=== PATIENT | male | born 1980 | race Caucasian/White ===

== ENCOUNTER 2020-03-21 16:49 | Emergency (ER) | payer OTHER ==
[~2020-03-21] VITALS: Ht 167.6 cm; Wt 97.5 kg
[2020-03-21] MEDS ORDERED: METFORMIN HCL500 MG PO (17:23)
[2020-03-21] MEDS ORDERED: GABA400 PO (17:23)
[2020-03-21 17:24] LABS: BASOPHILS ABSOLUTE AUTO 0.07 K/mm3 (0.00-0.23); BASOPHILS PERCENT AUTO 1 % (0-2); EOSINOPHILS ABSOLUTE AUTO 0.22 K/mm3 (0.00-0.68); EOSINOPHILS PERCENT AUTO 2 % (0-6); Hematocrit 48.6 % (37.0-53.0); Hemoglobin 16.3 g/dL (13.5-17.5); IMMATURE GRAN ABSOLUTE AUTO 0.09 K/mm3 (0.00-0.10); IMMATURE GRAN PERCENT AUTO 1 % (0-1); LYMPHOCYTES ABSOLUTE AUTO 2.92 K/mm3 (0.84-5.20); LYMPHOCYTES PERCENT AUTO 29 % (21-46); MONOCYTES ABSOLUTE AUTO 0.67 K/mm3 (0.16-1.47); MONOCYTES PERCENT AUTO 7 % (4-13); Mean Corpuscular HGB 27.8 pg (26.0-34.0); Mean Corpuscular HGB Conc 33.5 g/dL (31.5-36.5); Mean Corpuscular Volume 83 fL (80-100); Mean Platelet Volume 10.6 fL (9.1-12.4); NEUTROPHILS ABSOLUTE AUTO 5.96 K/mm3 (1.96-9.15); NEUTROPHILS PERCENT AUTO 60 % (41-73); Platelet Count 287 K/mm3 (150-400); RDW Coefficient Variation 12.6 % (11.7-14.2); RDW Standard Deviation 38.3 fL (35.1-46.3); Red Blood Cell Count 5.86 M/mm3 (4.30-5.90); White Blood Cell Count 9.93 K/mm3 (4.00-11.30)
[2020-03-21 17:47] LABS: Alanine Aminotransfer (ALT/SGP 54 U/L (12-78); Albumin, Blood 3.6 g/dL (3.4-5.0); Albumin/Globulin Ratio 1.1 (0.8-1.8); Alk Phos 254 U/L (50-136); Anion Gap 9 mmol/L (6-16); Aspartate Aminotrans (AST/SGOT 26 U/L (12-37); Bilirubin, Total 0.4 mg/dL (0.1-1.0); Blood Urea Nitrogen 20 mg/dL (8-24); Bun/Creatinine Ratio 31.9 (12.0-20.0); CO2, Blood 24 mmol/L (21-32); Chloride, Blood 103 mmol/L (98-108); Creatinine, Blood 0.63 mg/dL (0.60-1.20); Globulin, Blood 3.3 g/dL (2.2-4.0); Glomerular Filtration Rate >60 (60-); Glucose, Blood 524 mg/dL (70-99); Potassium, Blood 4.5 mmol/L (3.5-5.5); Sodium, Blood 136 mmol/L (136-145); Total Protein, Blood 6.9 g/dL (6.4-8.2)
[2020-03-21] MEDS ORDERED: OXYACE7.5T PO (18:53)
[2020-03-21] MEDS ORDERED: HYDCOR2.5C PR (18:53)
[2020-03-21] MEDS ORDERED: DOC250 PO (18:53)
== END 2020-03-21 19:28 | disposition home or self-care (01) ==
LOC: ER 16:49
PROVIDERS: Physician Assistant
DX: K64.5 Perianal venous thrombosis (principal); E11.9 Type 2 diabetes mellitus without complications; Z88.0 Allergy status to penicillin; Z79.84 Long term (current) use of oral hypoglycemic drugs; Z79.899 Other long term (current) drug therapy
CPT/HCPCS: 74177; 80053; 85025; 96374-59; 96375; 99283-25; A9270; J2405; J3010; Q9967

== ENCOUNTER → 2021-09-19 | Outpatient (CLI) | payer OTHER ==
[~2021-09-19] MED LIST: DOC250 PO; GABA400 PO; HYDCOR2.5C PR; METFORMIN HCL500 MG PO; OXYACE7.5T PO
[2021-09-19 16:02] LABS: BASOPHILS ABSOLUTE AUTO 0.09 K/mm3 (0.00-0.23); BASOPHILS PERCENT AUTO 1 % (0-2); EOSINOPHILS ABSOLUTE AUTO 0.14 K/mm3 (0.00-0.68); EOSINOPHILS PERCENT AUTO 1 % (0-6); Hematocrit 46.1 % (37.0-53.0); Hemoglobin 15.6 g/dL (13.5-17.5); IMMATURE GRAN ABSOLUTE AUTO 0.14 K/mm3 (0.00-0.10); IMMATURE GRAN PERCENT AUTO 1 % (0-1); LYMPHOCYTES ABSOLUTE AUTO 2.99 K/mm3 (0.84-5.20); LYMPHOCYTES PERCENT AUTO 26 % (21-46); MONOCYTES PERCENT AUTO 6 % (4-13); Mean Corpuscular HGB 28.1 pg (26.0-34.0); Mean Corpuscular HGB Conc 33.8 g/dL (31.5-36.5); Mean Corpuscular Volume 83 fL (80-100); Mean Platelet Volume 10.5 fL (9.1-12.4); NEUTROPHILS ABSOLUTE AUTO 7.36 K/mm3 (1.96-9.15); NEUTROPHILS PERCENT AUTO 65 % (41-73); Platelet Count 369 K/mm3 (150-400); RDW Coefficient Variation 12.9 % (11.7-14.2); RDW Standard Deviation 39.2 fL (35.1-46.3); Red Blood Cell Count 5.55 M/mm3 (4.30-5.90); White Blood Cell Count 11.42 K/mm3 (4.00-11.30)
== END | disposition home or self-care (01) ==
LOC: LAB 13:45 → LAB SHORT 13:45
PROVIDERS: Family Medicine
DX: J02.9 Acute pharyngitis, unspecified (principal); M21.941 Unspecified acquired deformity of hand, right hand
CPT/HCPCS: 36415; 84550; 85025; 87081

== ENCOUNTER 2021-10-31 14:04 | Emergency (ER) | payer OTHER ==
[~2021-10-31] VITALS: Ht 167.6 cm; Wt 74.8 kg
== END 2021-10-31 15:58 | disposition home or self-care (01) ==
LOC: ER 14:04
DX: R07.81 Pleurodynia (principal); W19.XXXA Unspecified fall, initial encounter; Z79.899 Other long term (current) drug therapy; Z79.84 Long term (current) use of oral hypoglycemic drugs; Z88.0 Allergy status to penicillin
CPT/HCPCS: 71101; A9270; J1885

== ENCOUNTER → 2024-01-02 | Outpatient (CLI) | payer OTHER ==
[~2024-01-02] MED LIST changes: +ATOR20 PO; +Amitriptyline H50 MG PO; +BASAGLAR K100 UNIT/3 SC; +CLIN150 PO; +GABA300 PO; -GABA400 PO; +HYDPAM50 PO; +INSULIN AS100 UNIT/8 SC; +LORA10ER PO; +MELATONIN10 M1 PO; +MULTI-VITAMIN1 EAC2 PO; +OMEP20ER PO; +QUETIAPINE FUM400 M6 PO; +Seroquel Xr50 MG PO; +THERA-D2000 UNIT PO; +VISBIOME 112.51 EACH PO; +VITAMIN D5000 UNIT PO
[2024-01-02 13:59] LABS: BASOPHILS ABSOLUTE AUTO 0.07 K/mm3 (0.00-0.23); BASOPHILS PERCENT AUTO 1 % (0-2); EOSINOPHILS ABSOLUTE AUTO 0.23 K/mm3 (0.00-0.68); EOSINOPHILS PERCENT AUTO 3 % (0-6); Hematocrit 48.1 % (37.0-53.0); Hemoglobin 16.4 g/dL (13.5-17.5); IMMATURE GRAN ABSOLUTE AUTO 0.06 K/mm3 (0.00-0.10); IMMATURE GRAN PERCENT AUTO 1 % (0-1); LYMPHOCYTES ABSOLUTE AUTO 2.54 K/mm3 (0.84-5.20); LYMPHOCYTES PERCENT AUTO 29 % (21-46); MONOCYTES ABSOLUTE AUTO 0.54 K/mm3 (0.16-1.47); MONOCYTES PERCENT AUTO 6 % (4-13); Mean Corpuscular HGB 27.7 pg (26.0-34.0); Mean Corpuscular HGB Conc 34.1 g/dL (31.5-36.5); Mean Corpuscular Volume 81 fL (80-100); Mean Platelet Volume 11.5 fL (9.1-12.4); NEUTROPHILS ABSOLUTE AUTO 5.21 K/mm3 (1.96-9.15); NEUTROPHILS PERCENT AUTO 60 % (41-73); Platelet Count 291 K/mm3 (150-400); RDW Coefficient Variation 13.2 % (11.7-14.2); RDW Standard Deviation 38.8 fL (35.1-46.3); Red Blood Cell Count 5.91 M/mm3 (4.30-5.90); White Blood Cell Count 8.65 K/mm3 (4.00-11.30)
[2024-01-02 14:51] LABS: Total Testosterone, Adult Male 212 ng/dL (175-781)
[2024-01-02 15:12] LABS: Vitamin D, 25-Hydroxy 16 ng/mL (32-80)
[2024-01-02 15:25] LABS: Alanine Aminotransfer (ALT/SGP 29 U/L (12-78); Albumin, Blood 3.6 g/dL (3.4-5.0); Albumin/Globulin Ratio 1.1 (0.8-1.8); Alk Phos 199 U/L (50-136); Anion Gap 10 mmol/L (3-11); Aspartate Aminotrans (AST/SGOT 17 U/L (12-37); Bilirubin, Total 0.4 mg/dL (0.1-1.0); Blood Urea Nitrogen 29 mg/dL (8-24); Bun/Creatinine Ratio 38.8 (12.0-20.0); CHOL/HDL RATIO 3.6; CO2, Blood 27 mmol/L (21-32); Calcium, Blood 9.6 mg/dL (8.5-10.1); Chloride, Blood 105 mmol/L (98-108); Cholesterol 202 mg/dL (50-200); Creatinine, Blood 0.75 mg/dL (0.60-1.20); Globulin, Blood 3.4 g/dL (2.2-4.0); Glomerular Filtration Rate 113 (60-); Glucose, Blood 424 mg/dL (70-99); HDL Cholesterol 56 mg/dL (>39); LDL/HDL RATIO 1.5; Low Density Lipoprotein Chol 85 mg/dL (0-110); Potassium, Blood 4.7 mmol/L (3.5-5.5); Sodium, Blood 137 mmol/L (136-145); Triglycerides 306 mg/dL (30-160); Very Low Density Lipoprot Chol 61 mg/dL (6-32)
[2024-01-02 15:29] LABS: Thyroid Stimulating Hormone 0.411 uIU/mL (0.360-4.800)
[2024-01-03 20:19] LABS: SERUM, C-PEPTIDE 2.9 ng/mL (0.5-3.3)
== END ==
LOC: LAB 12:10 → LAB SHORT 12:10
PROVIDERS: Physician Assistant
DX: E11.65 Type 2 diabetes mellitus with hyperglycemia (principal); E29.1 Testicular hypofunction; Z79.899 Other long term (current) drug therapy
CPT/HCPCS: 80053; 80061; 82306; 83036; 84403; 84443; 84681; 85025

== ENCOUNTER 2024-01-09 18:47 | Observation (INO) | payer OTHER ==
[~2024-01-09] VITALS: Ht 167.6 cm; Wt 75.5 kg
[~2024-01-09 18:47] MED LIST changes: -ATOR20 PO; -Amitriptyline H50 MG PO; -BASAGLAR K100 UNIT/3 SC; -CLIN150 PO; -GABA300 PO; -HYDPAM50 PO; -INSULIN AS100 UNIT/8 SC; +Insulin Human Lispro 100 Units/ML 3ML Syringe SC SCH; -LORA10ER PO; -MELATONIN10 M1 PO; -MULTI-VITAMIN1 EAC2 PO; -OMEP20ER PO; -QUETIAPINE FUM400 M6 PO; -Seroquel Xr50 MG PO; -THERA-D2000 UNIT PO; -VISBIOME 112.51 EACH PO; -VITAMIN D5000 UNIT PO
[2024-01-09 21:25] LABS: BASOPHILS ABSOLUTE AUTO 0.07 K/mm3 (0.00-0.23); BASOPHILS PERCENT AUTO 1 % (0-2); EOSINOPHILS ABSOLUTE AUTO 0.18 K/mm3 (0.00-0.68); EOSINOPHILS PERCENT AUTO 3 % (0-6); Hemoglobin 14.6 g/dL (13.5-17.5); IMMATURE GRAN ABSOLUTE AUTO 0.03 K/mm3 (0.00-0.10); IMMATURE GRAN PERCENT AUTO 0 % (0-1); LYMPHOCYTES ABSOLUTE AUTO 2.34 K/mm3 (0.84-5.20); LYMPHOCYTES PERCENT AUTO 33 % (21-46); MONOCYTES ABSOLUTE AUTO 0.49 K/mm3 (0.16-1.47); MONOCYTES PERCENT AUTO 7 % (4-13); Mean Corpuscular HGB 27.6 pg (26.0-34.0); Mean Corpuscular Volume 81 fL (80-100); Mean Platelet Volume 11.1 fL (9.1-12.4); NEUTROPHILS PERCENT AUTO 57 % (41-73); Platelet Count 265 K/mm3 (150-400); RDW Coefficient Variation 13.1 % (11.7-14.2); RDW Standard Deviation 38.5 fL (35.1-46.3); Red Blood Cell Count 5.29 M/mm3 (4.30-5.90); White Blood Cell Count 7.21 K/mm3 (4.00-11.30)
[2024-01-09 21:37] LABS: Albumin, Blood 3.3 g/dL (3.4-5.0); Bilirubin, Total 0.3 mg/dL (0.1-1.0); Bun/Creatinine Ratio 33.2 (12.0-20.0); C-REACTIVE PROTEIN, EXT RANGE 0.85 mg/dL (0.000-0.300); Calcium, Blood 9.4 mg/dL (8.5-10.1); Creatinine, Blood 0.57 mg/dL (0.60-1.20); Globulin, Blood 3.3 g/dL (2.2-4.0); Potassium, Blood 4.1 mmol/L (3.5-5.5); Total Protein, Blood 6.6 g/dL (6.4-8.2)
[2024-01-09] MEDS ORDERED: Vancomycin HCL 1,250 MG in NS 250 ML IV ONE (22:25)
[2024-01-09] MEDS ORDERED: Clindamycin 600mg in D5W 50 ML IV ONE (22:25)
[2024-01-09] MEDS ORDERED: Insulin NPH 100 Unit / ML 10ML Vial SC ONE (22:40)
[2024-01-09] MEDS ORDERED: FLU VACC TS2024-25(6MOS UP)/PF 45 MCG/0.5 ML SYRINGE IM SCH (23:30)
[2024-01-10] MEDS ORDERED: Acetaminophen 325 MG Supp PR PRN (02:10)
[2024-01-10 02:16] VITALS: BP 119/73
[2024-01-10 04:58] LABS: BASOPHILS ABSOLUTE AUTO 0.08 K/mm3 (0.00-0.23); BASOPHILS PERCENT AUTO 1 % (0-2); EOSINOPHILS ABSOLUTE AUTO 0.29 K/mm3 (0.00-0.68); EOSINOPHILS PERCENT AUTO 3 % (0-6); Hematocrit 43.1 % (37.0-53.0); IMMATURE GRAN ABSOLUTE AUTO 0.03 K/mm3 (0.00-0.10); IMMATURE GRAN PERCENT AUTO 0 % (0-1); LYMPHOCYTES ABSOLUTE AUTO 2.77 K/mm3 (0.84-5.20); LYMPHOCYTES PERCENT AUTO 33 % (21-46); MONOCYTES ABSOLUTE AUTO 0.59 K/mm3 (0.16-1.47); MONOCYTES PERCENT AUTO 7 % (4-13); Mean Corpuscular HGB Conc 34.8 g/dL (31.5-36.5); Mean Corpuscular Volume 81 fL (80-100); Mean Platelet Volume 10.6 fL (9.1-12.4); NEUTROPHILS ABSOLUTE AUTO 4.68 K/mm3 (1.96-9.15); NEUTROPHILS PERCENT AUTO 56 % (41-73); Platelet Count 251 K/mm3 (150-400); RDW Coefficient Variation 13.2 % (11.7-14.2); RDW Standard Deviation 38.1 fL (35.1-46.3); Red Blood Cell Count 5.35 M/mm3 (4.30-5.90); White Blood Cell Count 8.44 K/mm3 (4.00-11.30)
[2024-01-10 05:18] LABS: Bun/Creatinine Ratio 28.8 (12.0-20.0); Creatinine, Blood 0.59 mg/dL (0.60-1.20); Potassium, Blood 3.8 mmol/L (3.5-5.5)
[2024-01-10] MEDS ORDERED: Insulin Glargine-Yfgn 100 Unit/mL 3 ML SYR SC SCH ×3 (06:36→21:00)
[2024-01-10] MEDS ORDERED: Insulin Human Lispro 100 Units/ML 3ML Syringe SC SCH ×5 (07:30→11:30)
[2024-01-10 07:43] VITALS: BP 130/90
[2024-01-10] MEDS ORDERED: Clindamycin 600mg in D5W 50 ML IV SCH (08:00)
[2024-01-10] MEDS ORDERED: Vancomycin HCL 1,250 MG in NS 250 ML IV SCH (08:00)
[2024-01-10] MEDS ORDERED: NS 250 ML IV PRN (08:05)
[2024-01-10] MEDS ORDERED: Lactobacil 2-S.Thermo-Bifido 1 1 Cap PO SCH (09:00)
[2024-01-10] MEDS ORDERED: Enoxaparin 40 MG/0.4 ML SYR SC SCH (09:00)
[2024-01-10] MEDS ORDERED: Acetaminophen 325 MG TABLET PO PRN (09:10)
[2024-01-10] MEDS ORDERED: Gabapentin 300 MG Cap PO SCH (10:00)
[2024-01-10] MEDS ORDERED: Amitriptyline H50 MG PO (11:36)
[2024-01-10] MEDS ORDERED: VITAMIN D5000 UNIT PO (11:37)
[2024-01-10] MEDS ORDERED: ATOR20 PO (11:37)
[2024-01-10] MEDS ORDERED: DOC250 PO (11:38)
[2024-01-10] MEDS ORDERED: INSULIN AS100 UNIT/8 SC (11:40)
[2024-01-10] MEDS ORDERED: HYDPAM50 PO (11:40)
[2024-01-10] MEDS ORDERED: BASAGLAR K100 UNIT/3 SC (11:41)
[2024-01-10] MEDS ORDERED: LORA10ER PO (11:42)
[2024-01-10] MEDS ORDERED: MELATONIN10 M1 PO (11:42)
[2024-01-10] MEDS ORDERED: QUETIAPINE FUM400 M6 PO (11:45)
[2024-01-10] MEDS ORDERED: OMEP20ER PO (11:45)
[2024-01-10] MEDS ORDERED: MULTI-VITAMIN1 EAC2 PO (11:45)
[2024-01-10] MEDS ORDERED: Seroquel Xr50 MG PO (11:46)
[2024-01-10] MEDS ORDERED: THERA-D2000 UNIT PO (11:53)
--- NOTE | 2024-01-10 12:24 | NUR ---
1224 THIS RN NOTIFIED ABOUT PT CBG OF 376.
[2024-01-10] MEDS ORDERED: GABA300 PO (13:59)
[2024-01-10] MEDS ORDERED: VISBIOME 112.51 EACH PO (14:27)
[2024-01-10] MEDS ORDERED: CLIN150 PO (14:29)
== END 2024-01-10 15:38 | disposition home or self-care (01) ==
LOC: ER 18:47 → ERHOLD 18:48 → MEDS 18:48 → ENPENDDIS 01-10 14:52 → MEDS 01-10 15:38
PROVIDERS: Family Medicine; Student in an Organized Health Care Education/Training Program; ADMIT Internal Medicine
DX: L03.032 Cellulitis of left toe (principal); E11.40 Type 2 diabetes mellitus with diabetic neuropathy, unspecified; I10 Essential (primary) hypertension; G47.33 Obstructive sleep apnea (adult) (pediatric); K21.9 Gastro-esophageal reflux disease without esophagitis; F43.10 Post-traumatic stress disorder, unspecified; F43.12 Post-traumatic stress disorder, chronic; E78.00 Pure hypercholesterolemia, unspecified; Z79.4 Long term (current) use of insulin; Z79.899 Other long term (current) drug therapy; Z79.84 Long term (current) use of oral hypoglycemic drugs; Z88.0 Allergy status to penicillin
CPT/HCPCS: 36415; 80048; 80053; 82947; 83605; 84145; 85025; 85651; 86140; 96365; 96366; 96367; 96372; 99284-25; A9270; G0378; J1650; J1815; J3370; J7050

== ENCOUNTER 2024-01-12 21:30 | Emergency (ER) | payer OTHER ==
[~2024-01-12] VITALS: Ht 167.6 cm; Wt 77.1 kg
[~2024-01-12 21:30] MED LIST changes: +ATOR20 PO; +Amitriptyline H50 MG PO; +BASAGLAR K100 UNIT/3 SC; +CLIN150 PO; +GABA300 PO; +HYDPAM50 PO; +INSULIN AS100 UNIT/8 SC; -Insulin Human Lispro 100 Units/ML 3ML Syringe SC SCH; +LORA10ER PO; +MELATONIN10 M1 PO; +MULTI-VITAMIN1 EAC2 PO; +OMEP20ER PO; +QUETIAPINE FUM400 M6 PO; +Seroquel Xr50 MG PO; +THERA-D2000 UNIT PO; +VISBIOME 112.51 EACH PO; +VITAMIN D5000 UNIT PO
[2024-01-12 22:04] VITALS: BP 132/92
[2024-01-12 23:35] LABS: BASOPHILS ABSOLUTE AUTO 0.07 K/mm3 (0.00-0.23); BASOPHILS PERCENT AUTO 1 % (0-2); EOSINOPHILS ABSOLUTE AUTO 0.21 K/mm3 (0.00-0.68); EOSINOPHILS PERCENT AUTO 3 % (0-6); Hemoglobin 14.3 g/dL (13.5-17.5); IMMATURE GRAN ABSOLUTE AUTO 0.04 K/mm3 (0.00-0.10); IMMATURE GRAN PERCENT AUTO 1 % (0-1); LYMPHOCYTES PERCENT AUTO 34 % (21-46); MONOCYTES ABSOLUTE AUTO 0.62 K/mm3 (0.16-1.47); MONOCYTES PERCENT AUTO 7 % (4-13); Mean Corpuscular HGB 27.5 pg (26.0-34.0); Mean Corpuscular HGB Conc 32.5 g/dL (31.5-36.5); Mean Corpuscular Volume 85 fL (80-100); Mean Platelet Volume 10.1 fL (9.1-12.4); NEUTROPHILS ABSOLUTE AUTO 4.59 K/mm3 (1.96-9.15); NEUTROPHILS PERCENT AUTO 54 % (41-73); Platelet Count 279 K/mm3 (150-400); RDW Coefficient Variation 13.3 % (11.7-14.2); White Blood Cell Count 8.43 K/mm3 (4.00-11.30)
[2024-01-13 00:02] LABS: Albumin, Blood 3.2 g/dL (3.4-5.0); Bilirubin, Total 0.3 mg/dL (0.1-1.0); Bun/Creatinine Ratio 28.8 (12.0-20.0); Calcium, Blood 9.1 mg/dL (8.5-10.1); Creatinine, Blood 0.59 mg/dL (0.60-1.20); Globulin, Blood 3.2 g/dL (2.2-4.0); Potassium, Blood 3.5 mmol/L (3.5-5.5); Total Protein, Blood 6.4 g/dL (6.4-8.2)
[2024-01-13] MEDS ORDERED: CLIN300 PO (03:23)
== END 2024-01-13 03:59 | disposition home or self-care (01) ==
LOC: ER 21:30
PROVIDERS: Emergency Medicine
DX: S91.202A Unspecified open wound of left great toe with damage to nail, initial encounter (principal); X58.XXXA Exposure to other specified factors, initial encounter; J45.909 Unspecified asthma, uncomplicated; I10 Essential (primary) hypertension; E13.8 Other specified diabetes mellitus with unspecified complications; K21.9 Gastro-esophageal reflux disease without esophagitis; E78.00 Pure hypercholesterolemia, unspecified; Z88.0 Allergy status to penicillin; Z79.4 Long term (current) use of insulin; Z79.84 Long term (current) use of oral hypoglycemic drugs; Z79.899 Other long term (current) drug therapy
CPT/HCPCS: 11730; 80053; 85025; 99283-25

== ENCOUNTER → 2024-05-31 | Outpatient (CLI) | payer OTHER ==
[~2024-05-31] MED LIST changes: +CLIN300 PO
== END | disposition home or self-care (01) ==
LOC: LAB SHORT 10:00 → LAB 10:00
DX: L97.519 Non-pressure chronic ulcer of other part of right foot with unspecified severity (principal)
CPT/HCPCS: 87070; 87075; 87077; 87147; 87186; 87205

== ENCOUNTER 2024-06-02 16:19 | Inpatient (IN) | payer OTHER ==
[~2024-06-02] VITALS: Ht 167.6 cm; Wt 81.7 kg
[2024-06-02 17:34] LABS: BASOPHILS ABSOLUTE AUTO 0.03 K/mm3 (0.00-0.23); BASOPHILS PERCENT AUTO 0 % (0-2); EOSINOPHILS ABSOLUTE AUTO 0.22 K/mm3 (0.00-0.68); EOSINOPHILS PERCENT AUTO 2 % (0-6); Hematocrit 36.1 % (37.0-53.0); Hemoglobin 12.2 g/dL (13.5-17.5); IMMATURE GRAN ABSOLUTE AUTO 0.04 K/mm3 (0.00-0.10); IMMATURE GRAN PERCENT AUTO 0 % (0-1); LYMPHOCYTES ABSOLUTE AUTO 1.31 K/mm3 (0.84-5.20); LYMPHOCYTES PERCENT AUTO 11 % (21-46); MONOCYTES ABSOLUTE AUTO 0.76 K/mm3 (0.16-1.47); MONOCYTES PERCENT AUTO 6 % (4-13); Mean Corpuscular HGB 27.1 pg (26.0-34.0); Mean Corpuscular HGB Conc 33.8 g/dL (31.5-36.5); Mean Corpuscular Volume 80 fL (80-100); Mean Platelet Volume 10.5 fL (9.1-12.4); NEUTROPHILS ABSOLUTE AUTO 9.44 K/mm3 (1.96-9.15); NEUTROPHILS PERCENT AUTO 80 % (41-73); Platelet Count 247 K/mm3 (150-400); RDW Coefficient Variation 13.6 % (11.7-14.2); RDW Standard Deviation 39.6 fL (35.1-46.3); Red Blood Cell Count 4.51 M/mm3 (4.30-5.90)
[2024-06-02 18:04] LABS: Albumin, Blood 2.6 g/dL (3.4-5.0); Albumin/Globulin Ratio 0.7 (0.8-1.8); Bilirubin, Total 0.3 mg/dL (0.1-1.0); Bun/Creatinine Ratio 15.7 (12.0-20.0); Calcium, Blood 8.4 mg/dL (8.5-10.1); Creatinine, Blood 0.89 mg/dL (0.60-1.20); Globulin, Blood 3.7 g/dL (2.2-4.0); Potassium, Blood 3.4 mmol/L (3.5-5.5); Total Protein, Blood 6.3 g/dL (6.4-8.2)
[2024-06-02] MEDS ORDERED: Ciprofloxacin 400MG/D5 200ML 200 ML IV ONE (20:55)
[2024-06-02] MEDS ORDERED: NS 1,000 ML IV SCH ×2 (21:00→22:00)
[2024-06-02] MEDS ORDERED: Ketorolac Tromethamine 30mg Vial IV ONE (21:00)
[2024-06-02] MEDS ORDERED: FLU VACC TS2024-25(6MOS UP)/PF 45 MCG/0.5 ML SYRINGE IM ONE (21:15)
[2024-06-02] MEDS ORDERED: Vancomycin HCL 1,500 MG in NS 250 ML IV ONE (21:25)
[2024-06-02] MEDS ORDERED: CefTRIAXone Sodium 1,000 MG in NS 100 ML IV SCH (21:30)
[2024-06-02] MEDS ORDERED: Lactobacil 2-S.Thermo-Bifido 1 1 Cap PO SCH (22:00)
[2024-06-02] MEDS ORDERED: Insulin Human Lispro 100 Units/ML 3ML Syringe SC SCH (22:00)
[2024-06-02] MEDS ORDERED: Insulin Glargine-Yfgn 100 Unit/mL 3 ML SYR SC SCH (22:00)
[2024-06-02 23:14] VITALS: BP 144/94
[2024-06-02] MEDS ORDERED: HydrOXYzine Pamoate 50 MG Cap PO PRN (23:20)
[2024-06-02] MEDS ORDERED: QUEtiapine Fumarate 50 MG TAB PO PRN (23:25)
[2024-06-03] MEDS ORDERED: Potassium Chloride 20 MEQ/15 ML UDC PO ONE (01:05)
[2024-06-03 05:17] VITALS: BP 140/99
[2024-06-03 05:59] LABS: Hematocrit 36.9 % (37.0-53.0); Hemoglobin 12.3 g/dL (13.5-17.5); Mean Corpuscular HGB 26.9 pg (26.0-34.0); Mean Corpuscular HGB Conc 33.3 g/dL (31.5-36.5); Mean Corpuscular Volume 81 fL (80-100); Mean Platelet Volume 10.6 fL (9.1-12.4); Platelet Count 232 K/mm3 (150-400); RDW Coefficient Variation 13.6 % (11.7-14.2); RDW Standard Deviation 39.7 fL (35.1-46.3); Red Blood Cell Count 4.58 M/mm3 (4.30-5.90); White Blood Cell Count 9.23 K/mm3 (4.00-11.30)
--- NOTE | 2024-06-03 06:31 | NUR ---
SHIFT SUMMARY 44 YR M ADMITTED THIS SHIFT FROM THE ER. FULL CODE. PY HAS A RIGHT FOOT WOUND ON THE BOTTOM OF HIS FOOT. FOOT IS RED AND SWOLLEN. RED ARE IS OUTLINED W/ MARKER. WOUND IS OOZING SO DRESSING OF NON STICK PAD AND GAUZE WRAP WAS APPLIED. NO OTHER ACUTE ISSUES AT THIS TIME. PT HAS SLEPT FOR MOST OF HIS TIME ON THIS UNIT. HE IS A&O X 4, PLEASANT AND COOPERTIVE WITH CARE. ABLE TO MAKE HIS NEEDS KNOWN. BED IN LOW POSITION AND CALL LIGHT IN REACH.
[2024-06-03 06:34] LABS: Bun/Creatinine Ratio 22.9 (12.0-20.0); Calcium, Blood 7.9 mg/dL (8.5-10.1); Creatinine, Blood 0.65 mg/dL (0.60-1.20); Potassium, Blood 3.8 mmol/L (3.5-5.5)
[2024-06-03] MEDS ORDERED: Omeprazole 20 MG CapCR PO SCH (07:30)
[2024-06-03 07:55] VITALS: BP 148/99
[2024-06-03] MEDS ORDERED: Vancomycin HCL 1,000 MG in NS 250 ML IV SCH (08:00)
[2024-06-03] MEDS ORDERED: Cholecalciferol 1000 Unit Tablet (=25MCG) PO SCH (09:00)
[2024-06-03] MEDS ORDERED: Multivitamins 1 Tab PO SCH (09:00)
[2024-06-03] MEDS ORDERED: Loratadine 10 MG Tab PO SCH (09:00)
[2024-06-03] MEDS ORDERED: Gabapentin 300 MG Cap PO SCH (09:00)
[2024-06-03] MEDS ORDERED: Enoxaparin 40 MG/0.4 ML SYR SC SCH (09:00)
[2024-06-03] MEDS ORDERED: Docusate Sodium 250 MG Cap PO SCH (09:00)
[2024-06-03 11:33] VITALS: BP 155/94
[2024-06-03] MEDS ORDERED: Piperacillin/Tazobactam Sod 4.5 GM in NS 100 ML IV SCH (12:00)
[2024-06-03 16:06] VITALS: BP 144/92
--- NOTE | 2024-06-03 19:13 | NUR ---
ASSUMED CARE OF PT A/O X4 PLEASENT AND VERY DROWSEY TODAY, PT [id number] ATE OR SLEPT, HAD NO C/O PAIN AND NO DISTRESS. ANTIBIOTIC INFUSING FOR RIGHT FT ABCESS. PODIATRY IN THIS AM AND AGREED TO JUST WAIT AND SEE. FOOT WAS CLEANSSED WITH SPRAY AND DRESSED WITH 4X4 AND KERLIX. FT THE ELEVATED IN BED.
[2024-06-03 20:49] VITALS: BP 130/82
[2024-06-03] MEDS ORDERED: Atorvastatin 10 MG Tab PO SCH (21:00)
[2024-06-03] MEDS ORDERED: Melatonin 5 MG Tablet PO SCH (21:00)
[2024-06-03] MEDS ORDERED: Amitriptyline HCl 50 MG Tab PO SCH (21:00)
[2024-06-03 23:16] LABS: Vancomycin, Trough 13.3 ug/mL (5.0-10.0)
[2024-06-04] VITALS (7 sets, daily range): BP systolic 141–164; BP diastolic 86–108
[2024-06-04] MEDS ORDERED: NS 250 ML IV PRN (00:25)
--- NOTE | 2024-06-04 00:44 | NUR ---
PT RESTING QUIETLY AT START OF SHIFT. WOKE EASILY FOR CARE. UP INDEPENDENTLY IN RM AND TO BTHRM. PT ADMITTED FOR SEPSIS R/T DIABETIC FOOT ULCER. PT IS NONCOMPLIANT DIABETIC, BUT PLEASANT. DRSG TO R FOOT; C/D/I. PT RECEIVING IV ABX PER EMAR. PT REPORTS NEUROPATHY IN FEET AND UNABLE TO FEEL INJURY OR WOUNDS. DENIES FURTHER NEEDS AT THIS TIME. CALL LT IN REACH.
--- NOTE | 2024-06-04 04:15 | NUR ---
THIS NURSE RESUMED CARE FOR PT WITH NO ACUTE CHANGES NOTED. PT CONT WITH IV ABT. PT NOTED TO SLEEP THROUGHOUT THIS SHIFT.
[2024-06-04 05:31] LABS: BASOPHILS ABSOLUTE AUTO 0.05 K/mm3 (0.00-0.23); BASOPHILS PERCENT AUTO 1 % (0-2); EOSINOPHILS ABSOLUTE AUTO 0.48 K/mm3 (0.00-0.68); EOSINOPHILS PERCENT AUTO 5 % (0-6); Hematocrit 38.4 % (37.0-53.0); Hemoglobin 12.8 g/dL (13.5-17.5); IMMATURE GRAN ABSOLUTE AUTO 0.08 K/mm3 (0.00-0.10); IMMATURE GRAN PERCENT AUTO 1 % (0-1); LYMPHOCYTES PERCENT AUTO 20 % (21-46); MONOCYTES ABSOLUTE AUTO 0.75 K/mm3 (0.16-1.47); MONOCYTES PERCENT AUTO 8 % (4-13); Mean Corpuscular HGB 26.9 pg (26.0-34.0); Mean Corpuscular HGB Conc 33.3 g/dL (31.5-36.5); Mean Corpuscular Volume 81 fL (80-100); Mean Platelet Volume 10.2 fL (9.1-12.4); NEUTROPHILS PERCENT AUTO 65 % (41-73); Platelet Count 256 K/mm3 (150-400); RDW Coefficient Variation 13.3 % (11.7-14.2); RDW Standard Deviation 39.3 fL (35.1-46.3); Red Blood Cell Count 4.75 M/mm3 (4.30-5.90); White Blood Cell Count 8.96 K/mm3 (4.00-11.30)
[2024-06-04 05:59] LABS: Bun/Creatinine Ratio 14.4 (12.0-20.0); Calcium, Blood 8.3 mg/dL (8.5-10.1); Creatinine, Blood 0.63 mg/dL (0.60-1.20); Potassium, Blood 3.8 mmol/L (3.5-5.5)
--- NOTE | 2024-06-04 08:23 | NUR ---
ASSUMPTION OF CARE: ASSUMED CARE OF PATIENT. ASLEEP DURING SHIFT CHANGE REPORT, LYING SUPINE IN BED. BREATHING EVEN AND UNLABORED. ROOM AIR. BED IN LOWEST POSITION. CALL LIGHT WITHIN REACH. NO ACUTE NEEDS.
--- NOTE | 2024-06-04 13:58 | NUR ---
DR ZIEGLER TO BEDSIDE: ORDERS FOR POST-OP SHOE AND WOUND CARE ORDERS. PROVIDED BEDSIDE WOUND CHANGE AND DEBRIDEMENT.
--- NOTE | 2024-06-04 18:18 | NUR ---
END OF SHIFT SUMMARY: A&Ox4. PLEASANT AND COOPERATIVE WITH MOST CARE, THOUGH IS NONCOMPLIANT WITH NWB STATUS. ABLE TO ADVOCATE NEEDS EFFECTIVELY. WALKS INDEPENDENTLY, THOUGH HE HAS BEEN REMINDED TO UTILIZE CALL LIGHT FOR SBA FOR LINE MANAGEMENT AND RLE WEAKNESS R/T WOUND. CONTINENT OF BOWEL AND BLADDER. MEDS WHOLE c FLUIDS. NO C / O PAIN OR DISCOMFORT. DR ZIEGLER TO BEDSIDE AND PROVIDED WOUND CARE. ORDER FOR POST-OP SHOE HE IS WILLING TO WEAR. AT BEDSIDE TODAY c TAKEOUT FOR MEALS. PATIENT CONTINUES TO CONSUME FOODS AND SNACKS HEAVY IN STARCHES AND CARBOHYDRATES DESPITE DIABETES STATUS. CONTINUES c 5u HUMALOG AC. BED IN LOWEST POSITION, CALL LIGHT WITHIN REACH, ALL NEEDS MET. REPORT TO ONCOMING NURSE.
[2024-06-04] MEDS ORDERED: Acetaminophen 500 MG Tab PO PRN (21:05)
[2024-06-05 00:07] VITALS: BP 130/82
[2024-06-05 03:52] VITALS: BP 157/101
--- NOTE | 2024-06-05 05:09 | NUR ---
SHIFT SUMMARY; PATIENT SLEPT IN VERY LONG INTERVALS. DID STAND AT BEDSIDE AND VOID 1300ML AT ONCE. FEVER OF 101.7, MEDICATED WITH TYLENOL.TELE SR 92 BORDERLINE HTN NOTED.
[2024-06-05 07:20] VITALS: BP 140/96
--- NOTE | 2024-06-05 07:35 | NUR ---
ASSUMPTION OF CARE: ASSUMED CARE OF PATIENT. ASLEEP DURING SHIFT CHANGE REPORT. LYING IN BED. BREATHING EVEN AND UNLABORED c PRESENCE OF SNORE. ROOM AIR. TELE NSR. BED IN LOWEST POSITION. CALL LIGHT WITHIN REACH. NO ACUTE NEEDS.
[2024-06-05] MEDS ORDERED: ACET500 PO ×2 (10:41)
[2024-06-05] MEDS ORDERED: AMOCLA875 PO ×2 (10:42)
[2024-06-05 11:16] VITALS: BP 143/93
--- NOTE | 2024-06-05 20:27 | NUR ---
DISCHARGE SUMMARY: A&Ox4. COOPERATIVE WITH MOST CARE, THOUGH IS NONCOMPLIANT WITH NWB STATUS. ABLE TO ADVOCATE NEEDS EFFECTIVELY. AMBULATES INDEPENDENTLY; REMINDED TO UTILIZE CALL LIGHT FOR SBA FOR LINE MANAGEMENT AND RLE NWB STATUS. CONTINENT OF BOWEL AND BLADDER. MEDS WHOLE c FLUIDS. NO C/O PAIN OR DISCOMFORT. MEDS FAXED TO [facility]. IVs REMOVED BY THIS RN AFTER COMPLETING VANCO. PT LEFT FLOOR ACCOMPANIED BY WITH DISCHARGE PACKET AND ALL BELONGINGS. ORDERS FOR WOUND CARE CLINIC AND F/U c [facility].
== END 2024-06-05 12:00 | disposition home or self-care (01) | DRG 872 ==
LOC: ER 16:19 → MEDS 21:10 → ERHOLD 21:10 → MEDS 23:03 → ENPENDDIS 06-05 11:08 → MEDS 06-05 12:00
PROVIDERS: Internal Medicine; Physician Assistant; ADMIT Internal Medicine
DX: A41.9 Sepsis, unspecified organism (principal); L03.115 Cellulitis of right lower limb; L97.419 Non-pressure chronic ulcer of right heel and midfoot with unspecified severity; E11.621 Type 2 diabetes mellitus with foot ulcer; R65.20 Severe sepsis without septic shock; E11.628 Type 2 diabetes mellitus with other skin complications; E87.6 Hypokalemia; M54.50 Low back pain, unspecified; G89.29 Other chronic pain; F43.10 Post-traumatic stress disorder, unspecified; E11.42 Type 2 diabetes mellitus with diabetic polyneuropathy; F32.A Depression, unspecified; F41.9 Anxiety disorder, unspecified; K21.9 Gastro-esophageal reflux disease without esophagitis; E78.00 Pure hypercholesterolemia, unspecified; G47.30 Sleep apnea, unspecified; Z88.0 Allergy status to penicillin; Z79.84 Long term (current) use of oral hypoglycemic drugs; Z79.4 Long term (current) use of insulin; Z79.899 Other long term (current) drug therapy; Z79.2 Long term (current) use of antibiotics; E11.65 Type 2 diabetes mellitus with hyperglycemia
CPT/HCPCS: 36415; 73630; 73701; 80048; 80053; 80202; 82947; 83605; 85025; 85027; 87040; 87070; 87075; 87077; 87147; 87186; 87205; 93005; 93010; 96374-59; 99285-25; A9270; J0696; J0744; J1650; J1815; J1885; J2543; J3370; J7030; J7050; Q9967

== ENCOUNTER → 2024-06-06 | Outpatient (CLI) | payer OTHER ==
[~2024-06-06] MED LIST changes: +ACET500 PO; +AMOCLA875 PO
== END ==
LOC: LAB SHORT 10:33 → LAB 10:33
DX: E11.621 Type 2 diabetes mellitus with foot ulcer (principal)
CPT/HCPCS: 87070; 87075; 87077; 87147; 87186; 87205

== ENCOUNTER 2024-06-24 15:54 | Inpatient (IN) | payer OTHER ==
[~2024-06-24] VITALS: Ht 167.6 cm; Wt 78.0 kg
[2024-06-24] VITALS (11 sets, daily range): BP systolic 101–176; BP diastolic 75–127
[2024-06-24 16:24] LABS: BASOPHILS ABSOLUTE AUTO 0.08 K/mm3 (0.00-0.23); BASOPHILS PERCENT AUTO 1 % (0-2); EOSINOPHILS ABSOLUTE AUTO 0.24 K/mm3 (0.00-0.68); EOSINOPHILS PERCENT AUTO 3 % (0-6); Hematocrit 43.9 % (37.0-53.0); Hemoglobin 15.2 g/dL (13.5-17.5); IMMATURE GRAN ABSOLUTE AUTO 0.04 K/mm3 (0.00-0.10); IMMATURE GRAN PERCENT AUTO 1 % (0-1); LYMPHOCYTES ABSOLUTE AUTO 2.52 K/mm3 (0.84-5.20); LYMPHOCYTES PERCENT AUTO 29 % (21-46); MONOCYTES ABSOLUTE AUTO 0.49 K/mm3 (0.16-1.47); MONOCYTES PERCENT AUTO 6 % (4-13); Mean Corpuscular HGB 26.9 pg (26.0-34.0); Mean Corpuscular HGB Conc 34.6 g/dL (31.5-36.5); Mean Corpuscular Volume 78 fL (80-100); NEUTROPHILS ABSOLUTE AUTO 5.44 K/mm3 (1.96-9.15); NEUTROPHILS PERCENT AUTO 62 % (41-73); Platelet Count 320 K/mm3 (150-400); RDW Coefficient Variation 13.4 % (11.7-14.2); RDW Standard Deviation 37.8 fL (35.1-46.3); Red Blood Cell Count 5.65 M/mm3 (4.30-5.90); White Blood Cell Count 8.81 K/mm3 (4.00-11.30)
[2024-06-24 16:37] LABS: C-REACTIVE PROTEIN, EXT RANGE 0.324 mg/dL (0.000-0.300)
[2024-06-24 16:39] LABS: Albumin, Blood 3.2 g/dL (3.4-5.0); Albumin/Globulin Ratio 0.8 (0.8-1.8); Bilirubin, Total 0.4 mg/dL (0.1-1.0); Bun/Creatinine Ratio 24.6 (12.0-20.0); Creatinine, Blood 0.69 mg/dL (0.60-1.20); Globulin, Blood 3.9 g/dL (2.2-4.0); Potassium, Blood 4.1 mmol/L (3.5-5.5); Total Protein, Blood 7.1 g/dL (6.4-8.2)
[2024-06-24] MEDS ORDERED: Piperacillin/Tazobactam Sod 4.5 GM in NS 100 ML IV ONE (18:55)
[2024-06-24] MEDS ORDERED: NS 1,000 ML IV SCH (19:35)
[2024-06-24] MEDS ORDERED: OxyCODONE HCL 5 MG TAB PO PRN (19:35)
[2024-06-24] MEDS ORDERED: Albuterol 2.5 MG/3 ML VIAL INH PRN (19:35)
[2024-06-24] MEDS ORDERED: NS 1,000 ML IV ONE (20:00)
[2024-06-24] MEDS ORDERED: Insulin Human Lispro 100 Units/ML 3ML Syringe SC ONE (20:00)
[2024-06-24] MEDS ORDERED: OxyCODONE HCL 5 MG TAB PO ONE (20:00)
[2024-06-24] MEDS ORDERED: Lidocaine HCL 1% 10 ML MDV ONE (20:02)
[2024-06-24] MEDS ORDERED: Bupivacaine 0.5% Inj 10 ML Vial ONE (20:03)
[2024-06-24] MEDS ORDERED: Vancomycin HCL 1,250 MG in NS 250 ML IV ONE (20:05)
[2024-06-24] MEDS ORDERED: FentaNYL Citrate 50 MCG/ML 2 ML Injection ONE ×2 (20:21→20:28)
[2024-06-24] MEDS ORDERED: Ondansetron HCl 2 MG / ML 2ML Vial IV PRN (20:25)
[2024-06-24] MEDS ORDERED: Ketorolac Tromethamine 30mg Vial ONE (20:44)
[2024-06-24] MEDS ORDERED: Insulin Glargine-Yfgn 100 Unit/mL 3 ML SYR SC SCH (21:00)
[2024-06-24] MEDS ORDERED: Amitriptyline HCl 50 MG Tab PO SCH (21:00)
[2024-06-24] MEDS ORDERED: Gabapentin 300 MG Cap PO SCH (21:00)
[2024-06-24] MEDS ORDERED: Lactobacil 2-S.Thermo-Bifido 1 1 Cap PO SCH (21:00)
[2024-06-24] MEDS ORDERED: LISI5 PO (22:10)
[2024-06-24] MEDS ORDERED: JARDIANCE10 MG PO (22:11)
[2024-06-25] MEDS ORDERED: Piperacillin/Tazobactam Sod 3.375 GM in NS 100 ML IV SCH
[2024-06-25] MEDS ORDERED: Vancomycin HCL 1,000 MG in NS 250 ML IV SCH (04:00)
[2024-06-25 04:18] VITALS: BP 130/85
[2024-06-25] MEDS ORDERED: Omeprazole 20 MG CapCR PO SCH (06:00)
[2024-06-25 06:20] LABS: BASOPHILS ABSOLUTE AUTO 0.06 K/mm3 (0.00-0.23); BASOPHILS PERCENT AUTO 1 % (0-2); EOSINOPHILS ABSOLUTE AUTO 0.26 K/mm3 (0.00-0.68); EOSINOPHILS PERCENT AUTO 3 % (0-6); Hematocrit 38.8 % (37.0-53.0); Hemoglobin 12.9 g/dL (13.5-17.5); IMMATURE GRAN ABSOLUTE AUTO 0.04 K/mm3 (0.00-0.10); IMMATURE GRAN PERCENT AUTO 1 % (0-1); LYMPHOCYTES ABSOLUTE AUTO 1.66 K/mm3 (0.84-5.20); LYMPHOCYTES PERCENT AUTO 19 % (21-46); MONOCYTES ABSOLUTE AUTO 0.65 K/mm3 (0.16-1.47); MONOCYTES PERCENT AUTO 7 % (4-13); Mean Corpuscular HGB 26.5 pg (26.0-34.0); Mean Corpuscular HGB Conc 33.2 g/dL (31.5-36.5); Mean Corpuscular Volume 80 fL (80-100); Mean Platelet Volume 10.2 fL (9.1-12.4); NEUTROPHILS ABSOLUTE AUTO 6.15 K/mm3 (1.96-9.15); NEUTROPHILS PERCENT AUTO 70 % (41-73); Platelet Count 238 K/mm3 (150-400); RDW Coefficient Variation 13.7 % (11.7-14.2); RDW Standard Deviation 39.9 fL (35.1-46.3); Red Blood Cell Count 4.86 M/mm3 (4.30-5.90); White Blood Cell Count 8.82 K/mm3 (4.00-11.30)
[2024-06-25 06:42] LABS: Albumin, Blood 2.6 g/dL (3.4-5.0); Albumin/Globulin Ratio 0.8 (0.8-1.8); Bilirubin, Total 0.3 mg/dL (0.1-1.0); Bun/Creatinine Ratio 19.6 (12.0-20.0); Calcium, Blood 7.9 mg/dL (8.5-10.1); Creatinine, Blood 0.82 mg/dL (0.60-1.20); Globulin, Blood 3.3 g/dL (2.2-4.0); Potassium, Blood 3.9 mmol/L (3.5-5.5); Total Protein, Blood 5.9 g/dL (6.4-8.2)
--- NOTE | 2024-06-25 06:44 | NUR ---
SHIFT SUMMARY; AFTER ADMIT, PATIENT WAS ABLE TO ADVANCE DIET QUICKLY, NO NAUSEA. NS/100ML/HR PLACED IN CONTACT PRECAUTIONS FOR MRSA HAS REMAINED IN BED, DANGLED TO USE URINAL. PAIN MEDS EFFECTIVE.
[2024-06-25 07:18] VITALS: BP 127/84
[2024-06-25] MEDS ORDERED: Insulin Human Lispro 100 Units/ML 3ML Syringe SC SCH ×2 (07:45)
[2024-06-25] MEDS ORDERED: Atorvastatin 10 MG Tab PO SCH (09:00)
[2024-06-25] MEDS ORDERED: Enoxaparin 40 MG/0.4 ML SYR SC SCH (09:00)
[2024-06-25] MEDS ORDERED: Acetaminophen 500 MG Tab PO PRN (13:40)
[2024-06-25] MEDS ORDERED: Docusate Sodium 250 MG Cap PO PRN (13:40)
[2024-06-25] MEDS ORDERED: QUEtiapine Fumarate 50 MG TAB PO PRN (13:45)
[2024-06-25] MEDS ORDERED: HydrOXYzine Pamoate 50 MG Cap PO PRN (13:45)
--- NOTE | 2024-06-25 15:31 | NUR ---
DR WILDER IN TO SEE PT AND CHANGED DRESSING MEASUREMENTS: DORSAL INCISION: 3.5 CM LONG BY 0.5 WIDE BY 2.5 DEEP PLANTAR INCISION: 4.5 LONG BY 0.7 WIDE BY 7.5 DEEP.
[2024-06-25] MEDS ORDERED: Acetaminophen 325 MG TABLET PO PRN (15:40)
--- NOTE | 2024-06-25 17:23 | NUR ---
SUMMARY PT HAS BEEN SLEEPY MOST OF SHIFT. WAKES TO LOUD VOICE. MEDICATED PER ORDERS FOR PAIN T/O DAY. PT HAD TEMP THIS AFTERNOON OF 101.2. NOTIFIED DR PILLAI AND DR WILDER. ADMINISTERED TYLENOL PER ORDERS. DR WILDER IN TO CHANGE DRESSING TO R FOOT. PT TOLERATED WELL. PT NOW RESTING WITH EYES CLOSED, BREATHING E/U. CALL LIGHT IN REACH.
[2024-06-25 19:46] LABS: Vancomycin, Trough 17.2 ug/mL (5.0-10.0)
[2024-06-25 20:05] VITALS: BP 147/87
[2024-06-25] MEDS ORDERED: Melatonin 5 MG Tablet PO SCH (21:00)
[2024-06-25] MEDS ORDERED: Insulin Glargine-Yfgn 100 Unit/mL 3 ML SYR SC SCH (21:00)
[2024-06-26 00:05] VITALS: BP 125/83
--- NOTE | 2024-06-26 05:21 | NUR ---
SHIFT SUMMARY PT S/P I&D OF RIGHT FOOT. PT HAS BEEN SLEEPY, BUT EASILY WAKES TO NAME BEING CALLED. POST OP VITALS STABLE. PAIN MANAGED PER EMAR. SURGICAL SITE WNL. IV ANTIBITOICS PER ORDERS. PT VOIDING AND TOLERATING PO INTAKE. PLAN OF CARE REMAINS UNCHANGED. BED IN LOWEST POSITION, CALL LIGHT WITHIN REACH.
[2024-06-26 05:38] VITALS: BP 134/90
[2024-06-26 06:13] LABS: Hematocrit 37.2 % (37.0-53.0); Hemoglobin 12.5 g/dL (13.5-17.5); Mean Corpuscular HGB 26.8 pg (26.0-34.0); Mean Corpuscular HGB Conc 33.6 g/dL (31.5-36.5); Mean Corpuscular Volume 80 fL (80-100); Mean Platelet Volume 10.4 fL (9.1-12.4); Platelet Count 225 K/mm3 (150-400); RDW Coefficient Variation 13.6 % (11.7-14.2); RDW Standard Deviation 39.4 fL (35.1-46.3); Red Blood Cell Count 4.66 M/mm3 (4.30-5.90)
[2024-06-26 06:39] LABS: Albumin, Blood 2.4 g/dL (3.4-5.0); Anion Gap 8 mmol/L (3-11); Blood Urea Nitrogen 10 mg/dL (8-24); Bun/Creatinine Ratio 13.3 (12.0-20.0); CO2, Blood 25 mmol/L (21-32); Calcium, Blood 7.8 mg/dL (8.5-10.1); Chloride, Blood 113 mmol/L (98-108); Creatinine, Blood 0.75 mg/dL (0.60-1.20); Glomerular Filtration Rate 113 (60-); Glucose, Blood 99 mg/dL (70-99); Phosphorus, Blood 2.8 mg/dL (2.5-4.9); Potassium, Blood 3.5 mmol/L (3.5-5.5); Sodium, Blood 142 mmol/L (136-145)
[2024-06-26 07:43] VITALS: BP 146/86
[2024-06-26] MEDS ORDERED: Multivitamins 1 Tab PO SCH (09:00)
[2024-06-26] MEDS ORDERED: Cholecalciferol 1000 Unit Tablet (=25MCG) PO SCH (09:00)
[2024-06-26] MEDS ORDERED: Lisinopril 5 MG Tab PO SCH (09:00)
[2024-06-26] MEDS ORDERED: Loratadine 10 MG Tab PO SCH (09:00)
[2024-06-26 15:20] VITALS: BP 152/92
--- NOTE | 2024-06-26 18:05 | NUR ---
SUMMARY PT SLEPT MOST OF THE DAY, OOB TO CHAIR OR DANGLE TO EAT MEALS, DENIES ANY PAIN, ENRRIQUE WRAP C/D/I, NO ACUTE CHANGES THIS SHIFT.
[2024-06-26 19:45] VITALS: BP 141/87
[2024-06-26 20:06] LABS: Vancomycin, Trough 16.4 ug/mL (5.0-10.0)
[2024-06-27 02:08] VITALS: BP 122/88
--- NOTE | 2024-06-27 04:20 | NUR ---
SHIFT SUMMARY LUIS WAS ALERT AND FULLY ORIENTED ON ASSESSMENT. PT DRESSING TO R FOOT C/D/I. PT DENIES PAIN. PT HAS LITTLE TO NO SENSATION TO FEET AT BASELINE D/T NEUROPATHY. UNABLE TO ASSESS PEDAL PULSE D/T BULKY DRESSING CAP, REFIL ASSESSED >3 SEC. TEMPERATURE OF TOES EQUAL ON EACH FOOT. PT HAD A CBG OF 356 AT HS AFTER ORDERING PIZZA TO HIS ROOM. MEDICATED PER EMAR. HOSPITALIST NOTIFIED. NO ORDERS RECIEVED. PT HAD UNEVENTFUL NIGHT. NO CHANGES TO PT CONDITION NOTED.
[2024-06-27 05:30] LABS: Hematocrit 36.1 % (37.0-53.0); Hemoglobin 11.8 g/dL (13.5-17.5); Mean Corpuscular HGB 26.3 pg (26.0-34.0); Mean Corpuscular HGB Conc 32.7 g/dL (31.5-36.5); Mean Corpuscular Volume 81 fL (80-100); Mean Platelet Volume 10.6 fL (9.1-12.4); Platelet Count 225 K/mm3 (150-400); RDW Coefficient Variation 13.5 % (11.7-14.2); RDW Standard Deviation 39.7 fL (35.1-46.3); Red Blood Cell Count 4.48 M/mm3 (4.30-5.90)
[2024-06-27 05:49] LABS: Bun/Creatinine Ratio 18.6 (12.0-20.0); Calcium, Blood 8.3 mg/dL (8.5-10.1); Creatinine, Blood 0.7 mg/dL (0.60-1.20); Potassium, Blood 3.9 mmol/L (3.5-5.5)
[2024-06-27 07:24] VITALS: BP 148/94
[2024-06-27] MEDS ORDERED: Insulin Human Lispro 100 Units/ML 3ML Syringe SC SCH (09:00)
[2024-06-27 15:09] VITALS: BP 126/85
[2024-06-27 19:25] VITALS: BP 146/89
--- NOTE | 2024-06-27 19:40 | NUR ---
SHIFT SUMMARY PT IS A/OX4, SBA TO BR. R FOOT DRESSING C/D/I, CHANGED BY DR. WILDER TODAY. VSS. HYPERGLYCEMIA TREATED W/ INSULIN PER EMAR. PT VOIDING, TOLERATING DIET. PAIN MANAGEABLE W/ PAIN MEDS PER EMAR. PT TO DC HOME TOMORROW W/ HH AND WOUND VAC. CALL LIGHT IN REACH, REPORT TO [facility] NURSE MILES
[2024-06-28 05:33] VITALS: BP 121/73
[2024-06-28 07:14] VITALS: BP 124/80
--- NOTE | 2024-06-28 08:13 | NUR ---
PT UP AD SOPHIE IN ROOM AND DOES VERY WELL AND IS AWARE OF HIS WT RESTRICTION ON THE RT FOOT. RT FOOT HAS DRESSING THEN COVERED WITH ENRRIQUE WRAP C/D/I. PT REPORTS THAT HE MIGHT GO HOME AND THAT ALL THEY ARE WAITING ON IS THE WOUND VAC. SCHEDULED MEDICATIONS GIVEN ORDERED T/O NOC. PT WITH NO C/O OF PAIN T/O NOC. PATIENT DID TAKE A SHOWER PRIOR TO GOING TO BED. KEPT DRESSING TO RT FOOT DRY. RLE WITH 1-2+ PITTED EDEMA NOTED. SL LEFT WRIST FLUSHED AND HELD UP T/O NOC. PT IN ISOLATION FOR VRE AND MRSA. WILL MASTER COASTWISE YACHT REPORT TO ONCOMING RN TAKING PATIENT.
--- NOTE | 2024-06-28 11:17 | NUR ---
ASSUMED CARE AT APROX 1005. PT INFORMED THAT AWAITING WOUND VAC APPROVAL SO LIKELY WILL BE UNABLE TO DC HOME UNTIL SUNDAY.
--- NOTE | 2024-06-28 12:03 | NUR ---
DRESSING CHANGED AND WOUND PACKED WITH 1/4" IOD, COVERED W/GAUZE AND KERLEX THEN ENRRIQUE WRAP PLACED. IN ROOM AND BOTH PATIENT AND EDUCATED ON DRESSING CHANGES, VERBALIZED AND DEMONSTRATED UNDERSTANDING. MD NOTIFIED. PLAN FOR PT TO BE DC'D HOME WITH DAILY DRESSING CHANGES UNTIL HOME WOUND VAC W/HH
[2024-06-28] MEDS ORDERED: AMOCLA875 PO (12:29)
[2024-06-28] MEDS ORDERED: LACT PO (12:30)
--- NOTE | 2024-06-28 15:06 | NUR ---
DISCHARGE PT DISCHARGED HOME FROM UNIT AT APROX 1455. PT AND DECLINED GOING OVER THE DISCHARGE PACKET. THIS RN EDUCATED ON THE IMPORTANCE OF DAILY WOUND PACKING CHANGES WELL TAKING ALL ANTIBIOTICS DIRECTED UNTIL COMPLETE AND WEIGHT BEARING STATUS. BOTH VERBALIZED UNDERSTANDING. WC TO PRIVATE VEHICLE.
== END 2024-06-28 14:55 | disposition home health service (06) | DRG 981 ==
LOC: ER 15:54 → SURS 19:14 → ERHOLD 19:14 → SURS 21:30
PROVIDERS: Internal Medicine; Nurse Practitioner Acute Care; Student in an Organized Health Care Education/Training Program; ADMIT Student in an Organized Health Care Education/Training Program
PROC: 0Q9N0ZZ Drainage of Right Metatarsal, Open Approach (ICD-10-PCS; principal; 2024-06-24 16:00)
DX: E11.52 Type 2 diabetes mellitus with diabetic peripheral angiopathy with gangrene (principal); A48.0 Gas gangrene; L03.115 Cellulitis of right lower limb; L02.611 Cutaneous abscess of right foot; E11.628 Type 2 diabetes mellitus with other skin complications; F43.10 Post-traumatic stress disorder, unspecified; F32.A Depression, unspecified; F41.9 Anxiety disorder, unspecified; K21.9 Gastro-esophageal reflux disease without esophagitis; E11.43 Type 2 diabetes mellitus with diabetic autonomic (poly)neuropathy; E78.5 Hyperlipidemia, unspecified; G47.30 Sleep apnea, unspecified; M54.50 Low back pain, unspecified; G89.29 Other chronic pain; K31.84 Gastroparesis; G47.10 Hypersomnia, unspecified; F10.10 Alcohol abuse, uncomplicated; J45.20 Mild intermittent asthma, uncomplicated; E11.65 Type 2 diabetes mellitus with hyperglycemia; E11.621 Type 2 diabetes mellitus with foot ulcer; B95.4 Other streptococcus as the cause of diseases classified elsewhere; L97.519 Non-pressure chronic ulcer of other part of right foot with unspecified severity; Z79.84 Long term (current) use of oral hypoglycemic drugs; Z79.899 Other long term (current) drug therapy; Z79.4 Long term (current) use of insulin; Z79.85 Long-term (current) use of injectable non-insulin antidiabetic drugs; Z79.811 Long term (current) use of aromatase inhibitors; Z88.0 Allergy status to penicillin; Z86.14 Personal history of Methicillin resistant Staphylococcus aureus infection
CPT/HCPCS: 36415; 73701; 80048; 80053; 80069; 80202; 82947; 83036; 85025; 85027; 85651; 86140; 87040; 87070; 87075; 87147; 87205; 94760; 97110; 97116; 97162; 99284-25; A9270; J1650; J1815; J1885; J2003; J2543; J3010; J3370; J7030; J7050; Q9967

== ENCOUNTER 2024-07-15 16:06 | Inpatient (IN) | payer OTHER ==
[~2024-07-15] VITALS: Ht 167.6 cm; Wt 78.8 kg
[~2024-07-15 16:06] MED LIST changes: -HYDPAM50 PO; +Hydroxyzine HCl50 MG PO; +JARDIANCE10 MG PO; +LACT PO; +LISI5 PO; -THERA-D2000 UNIT PO
[2024-07-15 16:38] LABS: BASOPHILS ABSOLUTE AUTO 0.08 K/mm3 (0.00-0.23); BASOPHILS PERCENT AUTO 1 % (0-2); EOSINOPHILS ABSOLUTE AUTO 0.32 K/mm3 (0.00-0.68); EOSINOPHILS PERCENT AUTO 2 % (0-6); Hemoglobin 14.2 g/dL (13.5-17.5); IMMATURE GRAN ABSOLUTE AUTO 0.09 K/mm3 (0.00-0.10); IMMATURE GRAN PERCENT AUTO 1 % (0-1); LYMPHOCYTES ABSOLUTE AUTO 2.51 K/mm3 (0.84-5.20); LYMPHOCYTES PERCENT AUTO 17 % (21-46); MONOCYTES ABSOLUTE AUTO 1.14 K/mm3 (0.16-1.47); MONOCYTES PERCENT AUTO 8 % (4-13); Mean Corpuscular HGB 26.2 pg (26.0-34.0); Mean Corpuscular Volume 80 fL (80-100); Mean Platelet Volume 10.3 fL (9.1-12.4); NEUTROPHILS ABSOLUTE AUTO 10.51 K/mm3 (1.96-9.15); NEUTROPHILS PERCENT AUTO 72 % (41-73); Platelet Count 337 K/mm3 (150-400); RDW Coefficient Variation 13.6 % (11.7-14.2); RDW Standard Deviation 39.3 fL (35.1-46.3); Red Blood Cell Count 5.41 M/mm3 (4.30-5.90); White Blood Cell Count 14.65 K/mm3 (4.00-11.30)
[2024-07-15 17:00] LABS: Albumin/Globulin Ratio 0.7 (0.8-1.8); Bilirubin, Total 0.3 mg/dL (0.1-1.0); Bun/Creatinine Ratio 21.7 (12.0-20.0); Calcium, Blood 9.2 mg/dL (8.5-10.1); Creatinine, Blood 1.06 mg/dL (0.60-1.20); Globulin, Blood 4.4 g/dL (2.2-4.0); Total Protein, Blood 7.4 g/dL (6.4-8.2)
[2024-07-15] MEDS ORDERED: NS 1,000 ML IV SCH ×2 (19:25→22:00)
[2024-07-15] MEDS ORDERED: Vancomycin HCL 1,500 MG in NS 250 ML IV ONE (19:30)
[2024-07-15] MEDS ORDERED: Cefepime HCl 1,000 MG in NS 100 ML IV ONE (19:30)
[2024-07-15] MEDS ORDERED: Metoclopramide HCl 5MG / ML 2ML Vial IV PRN (21:40)
[2024-07-15] MEDS ORDERED: Magnesium Hydroxide Conc 10 ML UDC PO PRN (21:40)
[2024-07-15] MEDS ORDERED: Ibuprofen 400 MG Tab PO PRN (21:45)
[2024-07-15] MEDS ORDERED: HYDROmorphone HCl/Pf 1MG SYR IV PRN (21:45)
[2024-07-15] MEDS ORDERED: Acetaminophen 325 MG TABLET PO PRN (21:50)
[2024-07-15 21:59] LABS: C-REACTIVE PROTEIN, EXT RANGE 11.9 mg/dL (0.000-0.300)
[2024-07-15] MEDS ORDERED: Insulin Glargine-Yfgn 100 Unit/mL 3 ML SYR SC SCH (22:00)
[2024-07-15 22:10] LABS: U Amphetamine Screen DETECTED; U Barbituate Screen Not Detected; U Benzodiazapine Screen Not Detected; U Buprenorphine Screen Not Detected; U Cannabinoids Screen Not Detected; U Cocaine Screen Not Detected; U Methadone Screen Not Detected; U Methamphetamine Screen DETECTED; U Opiates Screen Not Detected; U Oxycodone Screen Not Detected; U Phencyclidine Screen Not Detected
[2024-07-15 22:45] LABS: Prothrombin Time Results 10.7 Sec (9.7-11.5)
[2024-07-15 23:24] VITALS: BP 114/73
--- NOTE | 2024-07-16 00:15 | NUR ---
TRANSFER NOTE: PT AOX4 TRANSFERRED FROM ER. VERY TIRED BUT IS AROUSABLE AND ANSWERS QUESTIONS APPROPRIATELY. IS SBA AROUND THE ROOM ALTHOUGH ELECTED TO BE SLID FROM [facility]. PT ORIENTED TO ROOM AND IS COOPERATIVE IN CARE AND PLEASANT. PT IN BED SLEEPING, BED IN LOWEST POSITION, CALL LIGHT IN REACH. CONTINUING CARE
--- NOTE | 2024-07-16 04:34 | NUR ---
SHIFT SUMMARY: PT AOX4, DROWSY BUT ARROUSABLE. ABLE TO ANSWER QUESTIONS APPROPRIATELY. IS ABLE TO STAND BUT INSTRUCTED TO STAY OFF THE R FOOT UNTIL PODIATRY CAME AND SAW HIM. PT AGRREABLE WITH PLAN IN PLACE. TOLERATING MEDICATIONS WELL, WITH LITTLE COMPLAINTS. NO ACUTE EVENTS OVERNIGHT. PT IN BED SLEEPING, BED IN LOWEST POSITION, CALL LIGHT IN REACH. CONTINUING CARE.
[2024-07-16 05:18] VITALS: BP 135/84
[2024-07-16 05:28] LABS: BASOPHILS ABSOLUTE AUTO 0.05 K/mm3 (0.00-0.23); BASOPHILS PERCENT AUTO 1 % (0-2); EOSINOPHILS ABSOLUTE AUTO 0.18 K/mm3 (0.00-0.68); EOSINOPHILS PERCENT AUTO 2 % (0-6); Hematocrit 37.9 % (37.0-53.0); Hemoglobin 12.6 g/dL (13.5-17.5); IMMATURE GRAN ABSOLUTE AUTO 0.06 K/mm3 (0.00-0.10); IMMATURE GRAN PERCENT AUTO 1 % (0-1); LYMPHOCYTES ABSOLUTE AUTO 1.62 K/mm3 (0.84-5.20); LYMPHOCYTES PERCENT AUTO 16 % (21-46); MONOCYTES ABSOLUTE AUTO 0.93 K/mm3 (0.16-1.47); MONOCYTES PERCENT AUTO 9 % (4-13); Mean Corpuscular HGB 26.1 pg (26.0-34.0); Mean Corpuscular HGB Conc 33.2 g/dL (31.5-36.5); Mean Corpuscular Volume 79 fL (80-100); NEUTROPHILS ABSOLUTE AUTO 7.29 K/mm3 (1.96-9.15); NEUTROPHILS PERCENT AUTO 72 % (41-73); Platelet Count 245 K/mm3 (150-400); RDW Coefficient Variation 13.6 % (11.7-14.2); RDW Standard Deviation 38.9 fL (35.1-46.3); Red Blood Cell Count 4.83 M/mm3 (4.30-5.90); White Blood Cell Count 10.13 K/mm3 (4.00-11.30)
[2024-07-16 05:54] LABS: Albumin, Blood 2.3 g/dL (3.4-5.0); Albumin/Globulin Ratio 0.5 (0.8-1.8); Bilirubin, Total 0.5 mg/dL (0.1-1.0); Bun/Creatinine Ratio 20.4 (12.0-20.0); Calcium, Blood 8.3 mg/dL (8.5-10.1); Creatinine, Blood 0.78 mg/dL (0.60-1.20); Globulin, Blood 4.2 g/dL (2.2-4.0); Potassium, Blood 3.5 mmol/L (3.5-5.5); Total Protein, Blood 6.5 g/dL (6.4-8.2)
[2024-07-16] MEDS ORDERED: Cefepime HCl 2,000 MG in NS 100 ML IV SCH (09:00)
[2024-07-16] MEDS ORDERED: Gabapentin 300 MG Cap PO SCH (09:00)
[2024-07-16] MEDS ORDERED: Insulin Glargine-Yfgn 100 Unit/mL 3 ML SYR SC SCH (09:00)
[2024-07-16] MEDS ORDERED: Vancomycin HCL 1,250 MG in NS 250 ML IV SCH (09:00)
[2024-07-16] MEDS ORDERED: Sennosides 8.6 MG Tab PO SCH (09:00)
[2024-07-16] MEDS ORDERED: Lactobacil 2-S.Thermo-Bifido 1 1 Cap PO SCH (09:00)
[2024-07-16] MEDS ORDERED: IBUP400 PO (11:21)
[2024-07-16] MEDS ORDERED: Zanaflex2 M1 PO (11:22)
[2024-07-16] MEDS ORDERED: DOXY100 PO (11:23)
[2024-07-16] MEDS ORDERED: HyDROXyzine HCl 10 MG Tab PO PRN (11:25)
[2024-07-16] MEDS ORDERED: Insulin Human Lispro 100 Units/ML 3ML Syringe SC SCH ×2 (11:30)
[2024-07-16] MEDS ORDERED: HyDROXyzine HCl 25 MG Tab PO PRN (11:50)
[2024-07-16 16:45] VITALS: BP 181/89
--- NOTE | 2024-07-16 17:21 | NUR ---
PATIENT A/OX4, UP INDEPENDENTLY TO RESTROOM. FEVER 102.0 THIS EVENING, TYLENOL GIVEN TO TREAT. B/P DR. LY NOTIFIED AND METOPROLOL AND LISINOPRIL ORDERED TO TREAT. DR WILDER AT BEDSIDE THIS AFTERNOON, WOUND CARE ORDERS PLACED FOR R FOOT WOUNDS, AND DRESSING CHANGED. MRI ORDERED, BUT MACHINE IS DOWN UNTIL TOMORROW. PATIENT DENIES ANY PAIN TODAY. TOLERATING DIABETIC DIET, ACHS BLOOD SUGARS, COVERAGE PER SLIDING SCALE. PATIENT COOPERATIVE WITH CARE AND CALLS APPROPRIATELY FOR ASSISTANCE.
[2024-07-16] MEDS ORDERED: Lisinopril 10 MG Tab PO SCH (18:00)
[2024-07-16] MEDS ORDERED: Metoprolol Tartrate 25 MG Tab PO SCH (18:00)
[2024-07-16 20:14] VITALS: BP 95/59
[2024-07-16] MEDS ORDERED: NS 250 ML IV PRN (20:45)
[2024-07-16 20:52] VITALS: BP 95/55
[2024-07-16] MEDS ORDERED: Amitriptyline HCl 50 MG Tab PO SCH (21:00)
[2024-07-17] VITALS (13 sets, daily range): BP systolic 109–172; BP diastolic 66–878
--- NOTE | 2024-07-17 05:53 | NUR ---
SHIFT SUMMARY PT DROWSY AND SLEEPING MOST OF THE NIGHT. T-MAX 99.9. 1/2 BLOOD CULTURE POSITIVE FOR GRAM+ COCCI IN CLUSTERS- HEMATOLOGY NURSE EDUCATOR PROVIDER AND STERILE TECH NOTIFIED. NO CHANGE IN ANTIBIOTICS WHICH WERE GIVEN PER ORDER. PT DENIED THE NEED FOR PAIN MEDICATION. DRESSING TO RIGHT FOOT C/D/I. BED IN LOWEST POSITION, CALL LIGHT WITHIN REACH, SIDERAILS UP X2.
[2024-07-17 08:13] LABS: BASOPHILS ABSOLUTE AUTO 0.05 K/mm3 (0.00-0.23); BASOPHILS PERCENT AUTO 1 % (0-2); EOSINOPHILS ABSOLUTE AUTO 0.16 K/mm3 (0.00-0.68); EOSINOPHILS PERCENT AUTO 2 % (0-6); Hematocrit 37.6 % (37.0-53.0); Hemoglobin 12.6 g/dL (13.5-17.5); IMMATURE GRAN ABSOLUTE AUTO 0.04 K/mm3 (0.00-0.10); IMMATURE GRAN PERCENT AUTO 1 % (0-1); LYMPHOCYTES ABSOLUTE AUTO 1.61 K/mm3 (0.84-5.20); LYMPHOCYTES PERCENT AUTO 20 % (21-46); MONOCYTES ABSOLUTE AUTO 0.78 K/mm3 (0.16-1.47); MONOCYTES PERCENT AUTO 10 % (4-13); Mean Corpuscular HGB 26.3 pg (26.0-34.0); Mean Corpuscular HGB Conc 33.5 g/dL (31.5-36.5); Mean Corpuscular Volume 79 fL (80-100); Mean Platelet Volume 9.9 fL (9.1-12.4); NEUTROPHILS ABSOLUTE AUTO 5.52 K/mm3 (1.96-9.15); NEUTROPHILS PERCENT AUTO 68 % (41-73); Platelet Count 237 K/mm3 (150-400); RDW Coefficient Variation 13.2 % (11.7-14.2); RDW Standard Deviation 37.8 fL (35.1-46.3); Red Blood Cell Count 4.79 M/mm3 (4.30-5.90); White Blood Cell Count 8.16 K/mm3 (4.00-11.30)
[2024-07-17 08:25] LABS: Anion Gap 9 mmol/L (3-11); Blood Urea Nitrogen 12 mg/dL (8-24); CO2, Blood 25 mmol/L (21-32); Chloride, Blood 109 mmol/L (98-108); Creatinine, Blood 0.75 mg/dL (0.60-1.20); Glomerular Filtration Rate 113 (60-); Glucose, Blood 142 mg/dL (70-99); Potassium, Blood 3.7 mmol/L (3.5-5.5); Sodium, Blood 139 mmol/L (136-145); Vancomycin, Trough 11.4 ug/mL (5.0-10.0)
[2024-07-17] MEDS ORDERED: Vancomycin HCL 1,000 MG in NS 250 ML IV SCH (09:00)
[2024-07-17] MEDS ORDERED: NS 1,000 ML IV ONE ×2 (13:57→15:12)
[2024-07-17] MEDS ORDERED: Heparin Sodium 1000 Units/ML 10ML MDV ONE ×2 (13:57→15:12)
[2024-07-17] MEDS ORDERED: NS 250 ML IV ONE (13:58)
[2024-07-17] MEDS ORDERED: NS 0 ML IV ONE (15:11)
[2024-07-17] MEDS ORDERED: FentaNYL Citrate 50 MCG/ML 2 ML Injection ONE (15:18)
[2024-07-17] MEDS ORDERED: Midazolam HCl 1MG / ML 2ML Vial ONE (15:18)
--- NOTE | 2024-07-17 15:32 | NUR ---
PATIENT TAKEN TO INSURANCE PLAN SPECIALIST AND WILL GO TO PCU 12 AFTER. REPORT CALLED TO DEBORAH RAJAN. PATIENT BELONGINGS TAKEN BY AND MEDICATIONS TAKEN TO NEW ROOM.
--- NOTE | 2024-07-17 16:33 | NUR ---
ARRIVAL: PATIENT ARRIVES TO UNIT AND WAS BROUGHT BY BED. PATIENT AT BEDSIDE. VITAL SIGNS TAKEN, PATIENT HAS CALL LIGHT WITHIN REACH & BED IN LOWEST POSITION. KNOWS HE WILL LAY FLAT FOR AT LEAST AN HOUR AND IS ABLE TO EAT UNTIL MIDNIGHT FOR AN AMPUTATION IN THE MORNING.
--- NOTE | 2024-07-17 17:57 | NUR ---
SHIFT SUMMARY: PATIENT IS ALERT AND ORIENTED X4 & COOPERATIVE WITH HIS CARE. PATIENT ARRIVED TO UNIT TO BE RECOVERED AFTER AN ATTEMPT TO REVASCULARIZE HIS RIGHT LEG DUE TO A RIGHT DIABETIC ULCER THAT IS NOT HEALING. NO INTERVENTIONS WERE DONE, ACCESS SITE IS LEFT GROIN, SOFT NON TENDER & NO HEMATOMA, HAS A CLEAR DRESSING OVER IT. PATIENT TO LAY FLAT FOR 1 HR AFTER PROCEDURE AND TOELRATED IT WELL. GIRLFIREND WAS AT BEDSIDE UPON ARRIVAL. IV ABX CONTINUE AND PATIENT AWARE TO BECOME NPO AT MIDNIGHT FOR AMPUTATION SURGERY IN THE MORNING OF THE SECOND METATARSAL OF THAT RIGHT FOOT. PATIENT HAS CALL LIGHT WITHIN REACH, BED IN LOWEST POSITION & STATING NOTHING IS NEEDED AT THIS TIME.
[2024-07-18] VITALS (19 sets, daily range): BP systolic 75–141; BP diastolic 56–93
--- NOTE | 2024-07-18 06:22 | NUR ---
SHIFT SUMMARY PATIENT A&O X4. O2 SATS WOULD DROP TO THE 50'S WHILE SLEEPING, PATIENT PLACED ON 2L O2 VIA NC WHILE SLEEPING. PATIENT STATED A 7 OUT OF 10 PAIN IN HIS RIGHT LEG, MEDICATED PER EMAR. WILL CONTINUE TO MONITOR.
[2024-07-18 08:41] LABS: Creatinine, Blood 0.66 mg/dL (0.60-1.20); Vancomycin, Trough 19.1 ug/mL (5.0-10.0)
--- NOTE | 2024-07-18 09:30 | NUR ---
AM NOTE: PT A/O X4, ON ROOM AIR SATS AT 98. PT INDEP TO THE BATHROOM PRIOR TO AMPUTATION. PT NSR HR IN 70s. LUNG SOUNDS CLEAR, SHALLOW RESPIRTATIONS. GAVE PT MEDICATIONS PER EMAR THIS MORNING BEFORE SURGERY. APPLIED IDODINE, NON-ADHESIVE, AND WRAPPED THE RIGHT LEFT PER VERBAL WOUND CARE ORDERS FROM PROVIDER. PT PICKED UP FOR SURGERY AT 0957 THIS MORNING FOR RIGHT SECOND TOE AMPUTATION.
[2024-07-18] MEDS ORDERED: Vancomycin HCL 1,250 MG in NS 250 ML IV SCH (10:00)
--- NOTE | 2024-07-18 10:22 | NUR ---
PT HAS 22G IV TO LEFT AC THAT FLUSHES WELL AND FLOWS TO GRAVITY. WILL START LARGER CATHETER IV TO BEGIN VANCO ADMIN IN PREOP.
[2024-07-18] MEDS ORDERED: Lactated Ringer's 1,000 ML IV SCH ×2 (10:25→13:20)
[2024-07-18] MEDS ORDERED: propofoL 20 ML IV ONE (10:30)
[2024-07-18] MEDS ORDERED: FentaNYL Citrate 50 MCG/ML 2 ML Injection ONE (10:30)
[2024-07-18] MEDS ORDERED: Bupivacaine 0.5% HCl 5 MG/ML 30MLVIAL ONE (10:36)
[2024-07-18] MEDS ORDERED: Lidocaine HCl 1% 30 ML SDV ONE (10:36)
--- NOTE | 2024-07-18 11:22 | NUR ---
PT BROUGHT FROM PCU TO DAY SURGERY FOR PROCEDURE. History, Chart, Medications and Allergies reviewed before start of procedure. Lungs clear T/O to Auscultation. Patient confirms NPO status and agrees with scheduled surgery. Pre-Op teaching done. Pt verbalizes understanding. PT AT BEDSIDE. PT BELONGINGS LEFT IN PERSONAL ROOM IN PCU. PT HAS A LIP PIERCING THAT CANNOT BE REMOVED. PIERCING TAPED, JEWELRY WAIVER SIGNED, OR TEAM NOTIFIED.
[2024-07-18] MEDS ORDERED: Dexamethasone Sod Phos 10 MG/ML 1ML VIAL ONE (11:30)
[2024-07-18] MEDS ORDERED: Ondansetron HCl 2 MG / ML 2ML Vial ONE (11:30)
[2024-07-18] MEDS ORDERED: Ketorolac Tromethamine 30mg Vial ONE (12:00)
--- NOTE | 2024-07-18 12:58 | NUR ---
POST-OP NOTE: PT ARRIVED POST-OP RIGHT FOOT SECOND TOE AMPUTATION TO PCU AT 1252 VIA GURNEY. TRANSFERRED PT OVER TO BED, BOOSTED, AND SITTING FOWLERS. PTS DRESSING C/D/I,CAP REFILL WNL, NWB STATUS. BP SOFT, MAP ABOVE 65. OTHER VSS. CALLLIGHT WITHIN REACH.
--- NOTE | 2024-07-18 13:18 | NUR ---
PATIENTS BP SOFT AND TRENDING DOWN, NOTIFIED DR ERVIN DR TO PLACE NEW ORDER FOR FLUIDS.
--- NOTE | 2024-07-18 17:34 | NUR ---
TRANSFER NOTE: PT TRANSFERRED TO MEDICAL FLOOR AT 1645, REPORT GIVEN TO RN ASSUMING CARE OF PT. BP TRENDING UP WITH FLUIDS. OTHER VSS. PT EDUCATED ON NWB STATUS POST-OP AND TO ELEVATE EXTREMITY.
--- NOTE | 2024-07-18 17:41 | NUR ---
I have reveiwed the nursing students documentation and am in agreement.
[2024-07-18 21:09] LABS: Glucose, Blood 536 mg/dL (70-99)
[2024-07-18] MEDS ORDERED: QUEtiapine Fumarate 50 MG TAB PO PRN (22:35)
[2024-07-19 00:24] LABS: Glucose, Blood 513 mg/dL (70-99)
[2024-07-19 03:43] VITALS: BP 131/88
--- NOTE | 2024-07-19 05:26 | NUR ---
SHIFT SUMMARY: PT IS ALERT AND ORIENTED. PT IS CALM AND COOPERATIVE WITH CARE. PT CALLS APPROPRIATELY. PT IS INDEPENDENT IN THE ROOM. PT HAD CBG > 500, GAVE SCHEDULED GLARGINE AND LISPRO PER SLIDING SCALE. CALLED DR. WALKER WHO SAID TO RECHECK @ 2330, BLOOD SUGAR CONTINUED TO BE > [address] WALKER AGAIN WITH THE RESULT, HE ORDERED AN ADDITIONAL 15 UNITS OF GLARGINE. NEXT CBG @ 0230 WAS 384. PT REPORTS R. FOOT PAIN ON ONE OCCASION, GAVE PRN DILAUDID. PT DENIES NAUSEA, VOMITING, AND SOB. BED IN LOW POSITION, CALL LIGHT WITHIN REACH. WILL CONTINUE TO MONITOR.
[2024-07-19 07:36] VITALS: BP 115/76
[2024-07-19 15:42] VITALS: BP 85/57
[2024-07-19 17:20] VITALS: BP 119/83
--- NOTE | 2024-07-19 17:59 | NUR ---
PATIENT ALERT AND ORIENTED X4, SO AT BEDSIDE, HELPFUL WITH CARE, DRESSING CHANGED DONE. PREMEDICATED WITH IV DILAUDID, PATIENT TOLERATED WITH EASE, 1/4 IODA FORM PACKING, XEROFORM, GAUZE AND A ENRRIQUE WRAP. NWB TO RIGHT TOES, IS OK WITH HEEL TOUCH ON RIGHT FOOT. INEDPEDANT IN ROOM, WILL RELAY TO PM DEBORAH
[2024-07-19 19:24] VITALS: BP 120/79
[2024-07-19 21:36] LABS: Vancomycin, Trough 16.4 ug/mL (5.0-10.0)
[2024-07-20 04:00] VITALS: BP 103/71
--- NOTE | 2024-07-20 04:34 | NUR ---
SHIFT SUMMARY - PT'S RIGHT FOOT IS WRAPPED - ENRRIQUE DRESSING IN PLACE - CD&I. PT IS ABLE TO WIGGLE HIS RIGHT TOES WITHOUT COMPLICATIONS. PT MEDICATED X1 FOR PAIN WITH DILAUDED - SEE EMAR. PT DENIED ANY HEADACHE, CHEST PAIN, NAUSEA, OR SOB. PT DENIES URINARY COMPLICATIONS AND REPORTS HAVING A BM TODAY. PT HAS BEEN INDEPENDENT IN THE ROOM. CALL LIGHT WITHIN REACH. BED IN LOW POSITION. FLUIDS AT BEDSIDE. WILL REPORT OFF TO ONCOMING SHIFT.
[2024-07-20 07:45] VITALS: BP 122/74
[2024-07-20] MEDS ORDERED: Enoxaparin 40 MG/0.4 ML SYR SC SCH (09:00)
[2024-07-20 15:07] VITALS: BP 118/84
--- NOTE | 2024-07-20 18:00 | NUR ---
NO ACUTE CHANGES, WAITING FOR BC RESULTS, PATIENT NEEDS MORE DAYS OF IV ANTIBIOTICS, DR CASEY ROUNDED AND CHANGED BANDAGE, PATIENT TOLERATED WITH EASE, PATIENT DENIED NEED FOR PAIN MEDS ALL DAY, ALERT AND ORIENTED X4, CLEARLY MAKES NEEDS KNOWN, CALL LIGHT WITH IN REACH
[2024-07-20 19:36] VITALS: BP 129/85
[2024-07-20] MEDS ORDERED: CeFAZolin Sodium 2,000 MG in NS 100 ML IV SCH (22:00)
[2024-07-21 04:26] VITALS: BP 119/74
--- NOTE | 2024-07-21 04:37 | NUR ---
SHIFT SUMMARY: PT AOX4 IND TO BSC AND AROUND THE ROOM HEEL TOUCH ON R FOOT. PT TOLERATING MEDICATIONS WELL. PT CALLS APPROPRIATELY AND ABLE TO MAKE NEEDS KNOWN. SLEPT WELL THROUGH THE NIGHT, DENIES ANY PAIN OR DISCOMFORT. NO ACUTE EVENTS OVERNIGHT. PT IN BED SLEEPING, BED IN LOWEST POSITION, CALL LIGHT IN REACH. CONTINUING CARE.
[2024-07-21 07:45] VITALS: BP 126/85
[2024-07-21 10:39] LABS: Mean Corpuscular HGB Conc 32.4 g/dL (31.5-36.5); Mean Corpuscular Volume 80 fL (80-100); Mean Platelet Volume 10.6 fL (9.1-12.4); Platelet Count 288 K/mm3 (150-400); RDW Coefficient Variation 13.5 % (11.7-14.2); RDW Standard Deviation 38.5 fL (35.1-46.3); Red Blood Cell Count 4.62 M/mm3 (4.30-5.90); White Blood Cell Count 7.61 K/mm3 (4.00-11.30)
[2024-07-21 11:16] LABS: Calcium, Blood 8.4 mg/dL (8.5-10.1); Creatinine, Blood 0.63 mg/dL (0.60-1.20); Potassium, Blood 4.6 mmol/L (3.5-5.5)
[2024-07-21 16:13] VITALS: BP 155/96
--- NOTE | 2024-07-21 16:34 | NUR ---
A/Ox4, INDEPENDENT IN ROOM & WILL CALL FOR ASSISTANCE, NO PAIN REPORTED, PT AT BEDSIDE MOST OF THE DAY, RIGHT FOOT WOUND DRESSING CHANGED, ANTIBIOTICS CONT. NEW OPEN SORE ON RIGHT HEEL NOTED.
--- NOTE | 2024-07-21 17:46 | NUR ---
REVIEWED CHARTING ENTERED BY ROBINSON MERLOS, STUDENT NURSE AND I AGREE WITH HER DOCUMENTATION FOR THIS PATIENT.
[2024-07-21 19:36] VITALS: BP 152/98
[2024-07-22 04:26] VITALS: BP 133/84
--- NOTE | 2024-07-22 04:45 | NUR ---
SHIFT SUMMARY: PT AOX4 IND IN THE ROOM. CALLS APPROPRIATELY ABLE TO MAKE NEEDS KNOWN. TOLERATING MEDICATIONS AND TREATMENT WELL, HAS DENIED ANY SIGNFICANT PAIN AND IS ABLE TO SLEEP WELL THROUGH THE NIGHT. PT ANXIOUS TO GO HOME, BUT UNDERSTANDS THE PLAN AND THOUGHT PROCESS BEHIND STAY. NO ACUTE EVENTS OVERNIGHT. PT IN BED SLEEPING, BED IN LOWEST POSITION, CALL LIGHT IN REACH. CONTINUING CARE.
[2024-07-22 07:47] VITALS: BP 138/89
[2024-07-22 14:28] VITALS: BP 133/88
--- NOTE | 2024-07-22 16:26 | NUR ---
PATIENT A/OX4, UP WITH FWW. NWB ON R FOOT. SMALL SORE DEVELOPING ON R HEEL. FOAM DRESSING PLACED AND PATIENT WEARING HEEL PROTECTORS. DR PILLAI ASSESSED WOUND DURING ROUNDS THIS SHIFT. IBUPROFEN GIVEN X1 FOR R FOOT PAIN WITH STATED RELIEF. NO OTHER NEW CONCERNS THIS SHIFT.
[2024-07-22 19:22] VITALS: BP 141/91
[2024-07-23] VITALS (11 sets, daily range): BP systolic 99–139; BP diastolic 64–91
--- NOTE | 2024-07-23 04:53 | NUR ---
SHIFT SUMMARY: PT AOX4 IND IN ROOM. CALLS APPROPRIATELY ABLE TO MAKE NEEDS KNOWN. PT TOLERATING MEDICATIONS WELL AND EAGER TO GO HOME. SLEPT WELL THROUGH THE NIGHT. NO ACUTE EVENTS OVERNIGHT. COMPLAINED OF SOME NEUROPATHY AT START OF SHIFT BUT SUBSIDED AFTER EVENING MED PASS. PT IN BED SLEEPING, BED IN LOWEST POSITION, CALL LIGHT IN REACH. CONTINUING CARE.
[2024-07-23] MEDS ORDERED: Lactated Ringer's 1,000 ML IV SCH (14:20)
[2024-07-23] MEDS ORDERED: Bupivacaine 0.5% W/EPI 1:200000 SDV 30 ML Vial ONE (14:25)
[2024-07-23] MEDS ORDERED: FentaNYL Citrate 50 MCG/ML 2 ML Injection ONE (15:03)
[2024-07-23] MEDS ORDERED: propofoL 20 ML IV ONE (15:03)
[2024-07-23] MEDS ORDERED: Ondansetron HCl 2 MG / ML 2ML Vial ONE (15:17)
[2024-07-23] MEDS ORDERED: Lidocaine HCl 1% 30 ML SDV ONE (15:26)
[2024-07-23] MEDS ORDERED: Bupivacaine 0.5% HCl 5 MG/ML 30MLVIAL ONE (15:26)
--- NOTE | 2024-07-23 15:51 | NUR ---
07/23/24 1551 Lyly Oritz ANCEF TWO GRAMS JUST PRIOR TO ARRIVAL IN O.R. SUITE PER REPORT FROM PREOPERATIVE NURSE.
--- NOTE | 2024-07-23 17:41 | NUR ---
A&Ox4, AT BEDSIDE MOST OF THE DAY, WENT BACK TO OR FOR MORE REMOVAL OF INFECTION IN RIGHT 2ND TOE, INDEPENDENT IN ROOM WITH WALKER, ANTIBIOTIC CONTINUE, DRESSING CHANGE REMAINS CLEAN AND INTACT, LONG ACTING INSULIN NOT GIVEN PER PATIENT REQUEST, HUMALOG INSULIN NOT NEEDED BLOOD SUGARS WITHIN NORMAL LIMITS
--- NOTE | 2024-07-23 19:20 | NUR ---
RECEIVED BEDSIDE REPORT. A/0 X 4. NWB TO RIGHT FOOT. PT USES WALKER INDEP TO THE BATHROOM. ON RA. WILL CONTINUE TO PROVIDE CARE T/O SHIFT. CALL LT IN REACH.
--- NOTE | 2024-07-23 23:10 | NUR ---
PT RESTING QUIETLY. SALINE LOCKED PT AFTER ABX INFUSED. NO OTHER NEEDS. CALL LT IN REACH.
--- NOTE | 2024-07-24 00:45 | NUR ---
PT RESTING QUIETLY. CALL LT IN REACH.
--- NOTE | 2024-07-24 03:15 | NUR ---
PT RESTING QUIETLY. CALL LT IN REACH.
--- NOTE | 2024-07-24 04:14 | NUR ---
SHIFT SUMMARY: A/O X 4. PLEASANT AND COOPERATIVE WITH CARE. HAD A RESECTION OF THE RIGHT 2ND TOE YESTERDAY, NEW DRESSING TO RIGHT FOOT. PT UNDERSTANDS THAT HE IS TO BE NWB ON RIGHT FOOT, USES FWW TO AMBULATE INTO THE BATHROOM. CBG 213. 30 UNITS OF LANTUS GIVEN ALONG WITH A SNACK. MEDICATED PT FOR R FOOT PAIN. ABX GIVEN. NO ACUTE CHANGES. PT RESTED WELL. WILL CONTINUE TO PROVIDE CARE T/O SHIFT UNTIL SHIFT REPORT TO ONCOMING NURSE. CALL LT IN REACH.
[2024-07-24 04:22] VITALS: BP 120/74
[2024-07-24 04:53] LABS: Hematocrit 36.9 % (37.0-53.0); Hemoglobin 12.1 g/dL (13.5-17.5); Mean Corpuscular HGB 26.8 pg (26.0-34.0); Mean Corpuscular HGB Conc 32.8 g/dL (31.5-36.5); Mean Corpuscular Volume 82 fL (80-100); Mean Platelet Volume 10.4 fL (9.1-12.4); Platelet Count 296 K/mm3 (150-400); RDW Coefficient Variation 13.7 % (11.7-14.2); RDW Standard Deviation 39.8 fL (35.1-46.3); Red Blood Cell Count 4.51 M/mm3 (4.30-5.90); White Blood Cell Count 8.52 K/mm3 (4.00-11.30)
[2024-07-24 05:26] LABS: Bun/Creatinine Ratio 18.9 (12.0-20.0); Calcium, Blood 8.2 mg/dL (8.5-10.1); Creatinine, Blood 0.85 mg/dL (0.60-1.20); Potassium, Blood 3.8 mmol/L (3.5-5.5)
[2024-07-24 07:28] VITALS: BP 119/72
[2024-07-24] MEDS ORDERED: Insulin Glargine-Yfgn 100 Unit/mL 3 ML SYR SC SCH (09:00)
[2024-07-24] MEDS ORDERED: Insulin Human Lispro 100 Units/ML 3ML Syringe SC SCH (12:30)
[2024-07-24] MEDS ORDERED: METO25 PO (12:49)
[2024-07-24] MEDS ORDERED: VISBIOME 112.51 EACH PO (12:50)
[2024-07-24] MEDS ORDERED: AMOCLA875 PO (12:50)
[2024-07-24] MEDS ORDERED: HUMALOG JU100 UNIT/2 SC (12:51)
--- NOTE | 2024-07-24 12:57 | NUR ---
REVIEWED NURSING STUDENTS DOCUMENTATION AND AGREEABLE WITH FINDINGS
--- NOTE | 2024-07-24 14:03 | NUR ---
DISCHARGE NOTE: WENT OVER DISCHARGE WITH PATIENT AND AT BEDSIDE; PROVIDED WOUND CARE DRESSINGS. PATIENT'S IV REMOVED, BELONGINGS COLLECTED. PATIENT WHEELED OUT BY [employer]OMOT[employer] ASSISTANT [employer] MARKETING. NO SIGNS OR SYMPTOMS OF DISTRESS WITH DISCHARGE.
== END 2024-07-24 14:00 | disposition home or self-care (01) | DRG 854 ==
LOC: ER 16:06 → MEDS 21:49 → ERHOLD 21:49 → MEDS 23:03 → PCU 07-17 14:09 → MEDS 07-17 14:52 → PCU 07-17 15:26 → MEDS 07-18 16:58
PROVIDERS: Family Medicine; Internal Medicine; Student in an Organized Health Care Education/Training Program; ADMIT Internal Medicine
PROC: 3E03329 Introduction of Other Anti-infective into Peripheral Vein, Percutaneous Approach (ICD-10-PCS; 2024-07-15)
PROC: B41F1ZZ Fluoroscopy of Right Lower Extremity Arteries using Low Osmolar Contrast (ICD-10-PCS; 2024-07-18)
PROC: 0Y6M0ZB Detachment at Right Foot, Partial 2nd Ray, Open Approach (ICD-10-PCS; principal; 2024-07-18 11:00)
PROC: 0QTN0ZZ Resection of Right Metatarsal, Open Approach (ICD-10-PCS; 2024-07-23)
DX: A41.01 Sepsis due to Methicillin susceptible Staphylococcus aureus (principal); L03.115 Cellulitis of right lower limb; M86.171 Other acute osteomyelitis, right ankle and foot; E11.51 Type 2 diabetes mellitus with diabetic peripheral angiopathy without gangrene; J45.909 Unspecified asthma, uncomplicated; I10 Essential (primary) hypertension; M54.50 Low back pain, unspecified; G89.29 Other chronic pain; F43.10 Post-traumatic stress disorder, unspecified; F32.A Depression, unspecified; E11.43 Type 2 diabetes mellitus with diabetic autonomic (poly)neuropathy; K31.84 Gastroparesis; F41.9 Anxiety disorder, unspecified; K21.9 Gastro-esophageal reflux disease without esophagitis; E78.00 Pure hypercholesterolemia, unspecified; E78.5 Hyperlipidemia, unspecified; G47.10 Hypersomnia, unspecified; G47.33 Obstructive sleep apnea (adult) (pediatric); E11.69 Type 2 diabetes mellitus with other specified complication; E11.621 Type 2 diabetes mellitus with foot ulcer; L97.519 Non-pressure chronic ulcer of other part of right foot with unspecified severity; E11.628 Type 2 diabetes mellitus with other skin complications; I70.201 Unspecified atherosclerosis of native arteries of extremities, right leg; Z79.84 Long term (current) use of oral hypoglycemic drugs; Z79.85 Long-term (current) use of injectable non-insulin antidiabetic drugs; Z79.4 Long term (current) use of insulin; Z79.899 Other long term (current) drug therapy; Z79.811 Long term (current) use of aromatase inhibitors; Z79.2 Long term (current) use of antibiotics; Z98.890 Other specified postprocedural states; Z86.14 Personal history of Methicillin resistant Staphylococcus aureus infection
CPT/HCPCS: 36415; 73718; 76937; 80048; 80053; 80202; 82565; 82947; 83605; 85025; 85027; 85610; 86140; 87040; 87070; 87075; 87077; 87147; 87186; 87205; 88305; 93306; 93922; 96365; 96368; 99152; 99284-25; A9270; C1760; C1769; C1887; C1894; J0690; J0692; J1100; J1171; J1644; J1650; J1815; J1885; J2250; J2405; J2704; J3010; J3370; J7030; J7050; J7120; Q9967

== ENCOUNTER → 2024-10-13 | Outpatient (CLI) | payer OTHER ==
[~2024-10-13] MED LIST changes: +DOXY100 PO; +HUMALOG JU100 UNIT/2 SC; +IBUP400 PO; +METO25 PO; +Zanaflex2 M1 PO
[2024-10-13 11:55] LABS: BASOPHILS ABSOLUTE AUTO 0.07 K/mm3 (0.00-0.23); BASOPHILS PERCENT AUTO 1 % (0-2); EOSINOPHILS ABSOLUTE AUTO 0.23 K/mm3 (0.00-0.68); EOSINOPHILS PERCENT AUTO 3 % (0-6); Hematocrit 46.1 % (37.0-53.0); Hemoglobin 15.3 g/dL (13.5-17.5); IMMATURE GRAN ABSOLUTE AUTO 0.04 K/mm3 (0.00-0.10); IMMATURE GRAN PERCENT AUTO 1 % (0-1); LYMPHOCYTES ABSOLUTE AUTO 2.26 K/mm3 (0.84-5.20); LYMPHOCYTES PERCENT AUTO 29 % (21-46); MONOCYTES ABSOLUTE AUTO 0.49 K/mm3 (0.16-1.47); MONOCYTES PERCENT AUTO 6 % (4-13); Mean Corpuscular HGB Conc 33.2 g/dL (31.5-36.5); Mean Corpuscular Volume 78 fL (80-100); NEUTROPHILS ABSOLUTE AUTO 4.67 K/mm3 (1.96-9.15); NEUTROPHILS PERCENT AUTO 60 % (41-73); NRBC ABSOLUTE 0.00 K/mm3 (0.00-0.02); NRBC Auto 0.0 /100 WBC (0.0-0.2); Platelet Count 312 K/mm3 (150-400); RDW Coefficient Variation 14.3 % (11.7-14.2); RDW Standard Deviation 40.3 fL (35.1-46.3)
[2024-10-13 12:51] LABS: Alanine Aminotransfer (ALT/SGP 26 U/L (12-78); Albumin, Blood 3.1 g/dL (3.4-5.0); Albumin/Globulin Ratio 0.8 (0.8-1.8); Anion Gap 6 mmol/L (3-11); Aspartate Aminotrans (AST/SGOT 19 U/L (12-37); Bilirubin, Total 0.3 mg/dL (0.1-1.0); Blood Urea Nitrogen 17 mg/dL (8-24); CHOL/HDL RATIO 3.5; CO2, Blood 27 mmol/L (21-32); Calcium, Blood 9.0 mg/dL (8.5-10.1); Chloride, Blood 109 mmol/L (98-108); Cholesterol 181 mg/dL (50-200); Creatinine, Blood 0.82 mg/dL (0.60-1.20); Ferritin, Serum 81 ng/mL (26-388); Globulin, Blood 3.7 g/dL (2.2-4.0); Glucose, Blood 277 mg/dL (70-99); HDL Cholesterol 51 mg/dL (>39); LDL/HDL RATIO 1.9; Low Density Lipoprotein Chol 95 mg/dL (0-110); Potassium, Blood 3.8 mmol/L (3.5-5.5); Prostate Specific Antigen 0.789 ng/mL (0.000-4.000); Sodium, Blood 138 mmol/L (136-145); Thyroid Stimulating Hormone 0.441 uIU/mL (0.360-4.800); Total Iron Binding Capacity 284 ug/dL (250-450); Total Protein, Blood 6.8 g/dL (6.4-8.2); Triglycerides 177 mg/dL (30-160); Very Low Density Lipoprot Chol 35 mg/dL (6-32)
[2024-10-14 18:31] LABS: HEPATITIS C AB CIA INTERP Negative (Negative); HEPATITIS C ANTIBODY CIA INDEX 0.03 IV
[2024-10-14 20:50] LABS: HIV 1,2 COMBO ANTIGEN/ANTIBODY Negative (Negative)
== END ==
LOC: LAB SHORT 08:55 → LAB 08:55
PROVIDERS: Nurse Practitioner Family
DX: E11.65 Type 2 diabetes mellitus with hyperglycemia (principal); E11.621 Type 2 diabetes mellitus with foot ulcer; E55.9 Vitamin D deficiency, unspecified; L97.519 Non-pressure chronic ulcer of other part of right foot with unspecified severity; Z11.4 Encounter for screening for human immunodeficiency virus [HIV]; Z11.59 Encounter for screening for other viral diseases; Z12.5 Encounter for screening for malignant neoplasm of prostate; Z79.899 Other long term (current) drug therapy
CPT/HCPCS: 80053; 80061; 82043; 82306; 82728; 83036; 83540; 83550; 84439; 84443; 84481; 85025; 86803; 87389; G0103